=== PATIENT | female | born 1935 | race Caucasian/White ===

== ENCOUNTER → 2016-11-02 | Outpatient (CLI) | payer MEDICARE, BC ==
--- NOTE | 2016-11-03 11:22 | PE ---
EXAMINATION TYPE: PET CT fusion skull to thigh DATE OF EXAM: 11/02/2016 1:22 PM COMPARISON: Chest CT 09/25/2016 HISTORY: Lung cancer TECHNIQUE: Following the intravenous administration of 14.9 mCi of F-18 FDG, whole body images are p erformed from the skull base to the midthigh. Images are reviewed on the computer in the coronal, ax ial, and sagittal planes. Reconstructed rotating images are created on independent workstation and r eviewed on the computer. A localization and attenuation correction CT is performed in conjunction w ith the PET scan. DLP: 411.93 mGycm SCAN: Initial Scan Blood glucose: 100 mg/dL Average Mediastinum SUV: 1.5 Average Liver SUV: 2.7 FINDINGS: NECK: There is increased signal within the right prevertebral space. This has an SUV value 5.0 which is suspicious for neoplasm. Direct visualization is recommended. There is increase radiotracer accum ulation within the right tonsillar pillar with an SUV value of 4.6. This could be within the metastat ic range. THORAX: There is a focus of radiotracer accumulation along the left superior mediastinum with an SUV value 2.7. This is suspicious for metastatic lymph node. There is marked increased radiotracer accumulation within the right peripheral lung mass measuring 11 .3 SUV compatible with neoplasm. No additional areas suspicious for mediastinal or hilar adenopathy i s evident. There is a focus along the left pleural margin with an SUV value of 2.6 which may be a ple ural-based metastasis. The area of pneumonitis at the left base is suspicious with an SUV value of 2. 6. Pleural-based or left rib based metastasis is suspected with SUV value of 3.3. ABDOMEN AND PELVIS: No suspicious uptake within the abdomen or pelvis. OSSEOUS STRUCTURES: Left lateral rib uptake may be present as discussed in the thorax section. PET im ages [address]: Uptake within the superior mediastinum does not have a corresponding CT abnormality. The peripheral right lung mass is evident. Osseous abnormality on the CT examination identified wit hin the ribs. This suggests this may be pleural-based. Note is made of coronary artery calcification. COMPARISON: Suspicious uptake to correspond to a nodular density within the right middle lobe lung ba se is not identified on the PET scan. Uptake is evident within the peripheral lung mass. IMPRESSION: 1. Marked uptake within the right lung mass suspicious for primary or possibly metastatic neoplasm. 2. Uptake within the superior mediastinum suspicious for metastatic disease. 3. Uptake within the right tonsillar pillar and right prevertebral space suspicious for neoplasm. Chrissy samuel and metastatic lesions should be considered. 4. Uptake along the lateral left chest wall 2 locations in the lower lateral chest. It is unclear whe ther this is chest wall or rib uptake. These areas are suspicious for neoplasm.
== END | disposition home or self-care (01) ==
LOC: RADPETMAIN 11:33
PROVIDERS: ATTEND Internal Medicine Hematology & Oncology
DX: R91.8 Other nonspecific abnormal finding of lung field (principal); R93.7 Abnormal findings on diagnostic imaging of other parts of musculoskeletal system; C34.91 Malignant neoplasm of unspecified part of right bronchus or lung
CPT/HCPCS: 78815; A9552

== ENCOUNTER 2016-12-07 16:30 | Inpatient (IN) | payer MEDICARE, BC ==
[2016-12-07] MEDS ORDERED: SODIUM CHLORIDE 0.9% 500 ML IV STA (16:58)
--- NOTE | 2016-12-07 17:02 | ED ---
Syncope HPI - General Chief Complaint: Syncope Stated Complaint: Syncope Time Seen by Provider: 12/07/16 16:52 Source: patient, EMS Mode of arrival: EMS - History of Present Illness Initial Comments: 81-year-old female with history of lung cancer diagnosed in September was sitting at the table when she passed out. Her friend said there was no seizure activity she was out cold or ice pack for about 1 minute. Drinking to now feels somewhat lightheaded. She had chemotherapy last week. She had no fever no chills no nausea no vomiting no diarrhea. No chest pain or shortness of breath. History of hypertension. No heart disease. She does have COPD. - Related Data Home Medications Medication Instructions Recorded Confirmed Citalopram Hydrobromide [CeleXA] 10 mg PO DAILY 12/07/16 12/07/16 amLODIPine [Norvasc] 5 mg PO BID 12/07/16 12/07/16 Allergies Allergy/AdvReac Type Severity Reaction Status Date / Time No Known Allergies Allergy Verified 12/07/16 17:26 Review of Systems ROS Statement: Those systems with pertinent positive or pertinent negative responses have been documented in the HPI. ROS Other: All systems not noted in ROS Statement are negative. Constitutional: Denies: fever, chills Eyes: Denies: eye pain ENT: Denies: ear pain Respiratory: Denies: cough Cardiovascular: Denies: chest pain Gastrointestinal: Denies: abdominal pain, nausea, vomiting, diarrhea Neurological: Denies: headache Psychiatric: Denies: anxiety, depression Hematological/Lymphatic: Denies: easy bleeding, easy bruising Past Medical History Past Medical History: COPD, Hyperlipidemia, Hypertension, Osteoarthritis (OA), Respiratory Disorder Additional Past Medical History / Comment(s): Diverticular disease, lung cancer History of Any Multi-Drug Resistant Organisms: None Reported Past Surgical History: Appendectomy, Hysterectomy Additional Past Surgical History / Comment(s): colostomy reversal 2009 cataracts Past Anesthesia/Blood Transfusion Reactions: No Reported Reaction Past Psychological History: Depression Smoking Status: Former smoker Past Alcohol Use History: Occasional Past Drug Use History: None Reported - Past Family History Mother Family Medical History: Cancer (Lung cancer) Brother(s) Family Medical History: Diabetes Mellitus Daughter(s) Family Medical History: Cancer (Breast cancer) General Exam Limitations: no limitations General appearance: alert, in no apparent distress Head exam: Present: atraumatic Eye exam: Present: PERRL, EOMI ENT exam: Present: normal oropharynx Respiratory exam: Present: normal lung sounds bilaterally Cardiovascular Exam: Present: normal rhythm, normal heart sounds GI/Abdominal exam: Present: soft. Absent: distended, tenderness Neurological exam: Present: alert, CN II-XII intact Psychiatric exam: Present: normal affect, normal mood Skin exam: Present: warm, dry Course Vital Signs 12/07/16 12/07/16 12/07/16 16:38 16:58 17:00 Temperature 97 F L Pulse Rate 70 Pulse Rate [ 74 Sitting] Pulse Rate [ 91 74 Standing] Pulse Rate [ 68 Supine] Respiratory 18 Rate Blood Pressure 94/56 Blood Pressure 108/62 [Sitting] Blood Pressure 116/65 [Standing] Blood Pressure 93/51 [Supine] O2 Sat by Pulse 97 Oximetry 12/07/16 12/07/16 12/07/16 18:14 18:31 19:15 Temperature 97.1 F L Pulse Rate 78 80 75 Pulse Rate [ Sitting] Pulse Rate [ Standing] Pulse Rate [ Supine] Respiratory 18 20 16 Rate Blood Pressure 129/63 136/65 Blood Pressure [Sitting] Blood Pressure [Standing] Blood Pressure [Supine] O2 Sat by Pulse 98 98 100 Oximetry Medical Decision Making - Medical Decision Making Spoke with the information support project manager he does not feel the elevated white count is related is just related to her Neulasta, we spoke to Dr. Hernandez resolution manager for her family doctor patient will be admitted for syncope. - Lab Data Result diagrams: 12/07/16 17:10 12/07/16 17:10 Lab Results 12/07/16 12/07/16 12/07/16 Range/Units 17:10 17:10 17:10 WBC 60.0 H* (3.8-10.6) k/uL RBC 2.98 L (3.80-5.40) m/uL Hgb 9.3 L (11.4-16.0) gm/dL Hct 29.2 L (34.0-46.0) % MCV 98.0 (80.0-100.0) fL MCH 31.1 (25.0-35.0) pg MCHC 31.8 (31.0-37.0) g/dL RDW 17.6 H (11.5-15.5) % Plt Count 603 H (150-450) k/uL Neutrophils % (Manual) 94.5 % Band Neutrophils % 1.0 % Lymphocytes % (Manual) 3.5 % Monocytes % (Manual) 1.0 % Neutrophils # (Manual) 57.3 H (1.3-7.7) k/uL Lymphocytes # (Manual) 2.1 (1.0-4.8) k/uL Monocytes # (Manual) 0.6 (0-1.0) k/uL Nucleated RBCs 0 (0-0) /100 WBC Manual Slide Review Performed Toxic Granulation Present Anisocytosis Slight Macrocytosis Slight PT (9.0-12.0) sec INR (<1.1) APTT (22.0-30.0) sec Sodium 140 (137-145) mmol/L Potassium 5.4 H (3.5-5.1) mmol/L Chloride 105 (98-107) mmol/L Carbon Dioxide 21 L (22-30) mmol/L Anion Gap 14 mmol/L BUN 31 H (7-17) mg/dL Creatinine 0.74 (0.52-1.04) mg/dL Est GFR (MDRD) Af Amer >60 (>60 ml/min/1.73 sqM) Est GFR (MDRD) Non-Af >60 (>60 ml/min/1.73 sqM) Glucose 109 H (74-99) mg/dL Calcium 10.5 H (8.4-10.2) mg/dL Total Bilirubin 0.6 (0.2-1.3) mg/dL AST 111 H (14-36) U/L ALT 149 H (9-52) U/L Alkaline Phosphatase 125 (38-126) U/L Total Creatine Kinase <20 L (30-135) U/L CK-MB (CK-2) <0.2 (0.0-2.4) ng/mL CK-MB (CK-2) Rel Index Troponin I <0.012 (0.000-0.034) ng/mL Total Protein 7.0 (6.3-8.2) g/dL Albumin 4.1 (3.5-5.0) g/dL Urine Color Urine Appearance (Clear) Urine pH (5.0-8.0) Ur Specific Story (1.001-1.035) Urine Protein (Negative) Urine Glucose (UA) (Negative) Urine Ketones (Negative) Urine Blood (Negative) Urine Nitrate (Negative) Urine Bilirubin (Negative) Urine Urobilinogen (<2.0) mg/dL Ur Leukocyte Esterase (Negative) Urine RBC (0-5) /hpf Urine WBC (0-5) /hpf Ur Squamous Epith Cells (0-4) /hpf Urine Bacteria (None) /hpf Urine Mucus (None) /hpf 12/07/16 12/07/16 Range/Units 17:10 18:30 WBC (3.8-10.6) k/uL RBC (3.80-5.40) m/uL Hgb (11.4-16.0) gm/dL Hct (34.0-46.0) % MCV (80.0-100.0) fL MCH (25.0-35.0) pg MCHC (31.0-37.0) g/dL RDW (11.5-15.5) % Plt Count (150-450) k/uL Neutrophils % (Manual) % Band Neutrophils % % Lymphocytes % (Manual) % Monocytes % (Manual) % Neutrophils # (Manual) (1.3-7.7) k/uL Lymphocytes # (Manual) (1.0-4.8) k/uL Monocytes # (Manual) (0-1.0) k/uL Nucleated RBCs (0-0) /100 WBC Manual Slide Review Toxic Granulation Anisocytosis Macrocytosis PT 10.5 (9.0-12.0) sec INR 1.0 (<1.1) APTT 18.2 L (22.0-30.0) sec Sodium (137-145) mmol/L Potassium (3.5-5.1) mmol/L Chloride (98-107) mmol/L Carbon Dioxide (22-30) mmol/L Anion Gap mmol/L BUN (7-17) mg/dL Creatinine (0.52-1.04) mg/dL Est GFR (MDRD) Af Amer (>60 ml/min/1.73 sqM) Est GFR (MDRD) Non-Af (>60 ml/min/1.73 sqM) Glucose (74-99) mg/dL Calcium (8.4-10.2) mg/dL Total Bilirubin (0.2-1.3) mg/dL AST (14-36) U/L ALT (9-52) U/L Alkaline Phosphatase (38-126) U/L Total Creatine Kinase (30-135) U/L CK-MB (CK-2) (0.0-2.4) ng/mL CK-MB (CK-2) Rel Index Troponin I (0.000-0.034) ng/mL Total Protein (6.3-8.2) g/dL Albumin (3.5-5.0) g/dL Urine Color Yellow Urine Appearance Cloudy H (Clear) Urine pH 5.0 (5.0-8.0) Ur Specific Story 1.014 (1.001-1.035) Urine Protein Trace H (Negative) Urine Glucose (UA) Negative (Negative) Urine Ketones Negative (Negative) Urine Blood Negative (Negative) Urine Nitrate Negative (Negative) Urine Bilirubin Negative (Negative) Urine Urobilinogen <2.0 (<2.0) mg/dL Ur Leukocyte Esterase Negative (Negative) Urine RBC 2 (0-5) /hpf Urine WBC 6 H (0-5) /hpf Ur Squamous Epith Cells 7 H (0-4) /hpf Urine Bacteria Rare H (None) /hpf Urine Mucus Occasional H (None) /hpf - EKG Data -: EKG Interpreted by Me 12/07/16 17:33 EKG 12/07/2016 1638 ventricular rate 72 bpm, LA interval 164 ms, QRS duration 84 ms, QT interval 388 ms normal sinus rhythm possible left atrial enlargement. Disposition Clinical Impression: Syncope Disposition: ADMITTED IP TO THIS [facility] Condition: Good Referrals: None,Stated [Primary Care Provider] - 1-2 days Time of Disposition: 19:57
[2016-12-07 17:34] LABS: ALT 149 U/L (9-52); AST 111 U/L (14-36); Alkaline Phosphatase 125 U/L (38-126); Anion Gap 14 mmol/L; Blood Urea Nitrogen 31 mg/dL (7-17); Calcium 10.5 mg/dL (8.4-10.2); Carbon Dioxide 21 mmol/L (22-30); Chloride 105 mmol/L (98-107); Glucose 109 mg/dL (74-99); Non-African American GFR(MDRD) >60 (>60 ml/min/1.73 sqM); Potassium 5.4 mmol/L (3.5-5.1); Sodium 140 mmol/L (137-145); Total Bilirubin 0.6 mg/dL (0.2-1.3)
[2016-12-07 17:35] LABS: Anisocytosis Slight; CH 31.3; CHCM 32.2; HCT 29.2 % (34.0-46.0); HDW 2.74; HGB 9.3 gm/dL (11.4-16.0); MCH 31.1 pg (25.0-35.0); MCHC 31.8 g/dL (31.0-37.0); Macrocytosis Slight; Mean Platelet Volume 7.7; RBC 2.98 m/uL (3.80-5.40); RDW 17.6 % (11.5-15.5); WBC (Perox) 59.65
[2016-12-07 17:40] LABS: Prothrombin Time 10.5 sec (9.0-12.0)
[2016-12-07 17:45] LABS: Creatine Kinase <20 U/L (30-135)
[2016-12-07 17:46] LABS: Partial Thromboplastin Time 18.2 sec (22.0-30.0)
[2016-12-07 17:47] LABS: Add Differential Manual Differential
[2016-12-07 17:51] LABS: Nucleated Red Blood Cells 0 /100 WBC (0-0); Total Cells Counted 200
[2016-12-07 17:52] LABS: Manual Review Performed; Toxic Granulation Present
--- NOTE | 2016-12-07 17:53 | XR ---
EXAMINATION TYPE: XR chest 2V DATE OF EXAM: 12/07/2016 5:45 PM COMPARISON: 03/29/2014 HISTORY: 81-year-old female with syncope and right-sided lung cancer TECHNIQUE: Frontal and lateral views FINDINGS: Heart remains borderline enlarged with mild elongation of thoracic aorta. Hyperinflation with diffuse interstitial prominence and chronic pleural parenchymal opacities along the peripheral right hemitho rax and right base. No paul consolidation or significant pleural effusion. IMPRESSION: COPD with extensive chronic pleural-parenchymal changes within the right hemithorax. No definite acut e process.
--- NOTE | 2016-12-07 17:57 | CT ---
EXAMINATION TYPE: CT brain wo con DATE OF EXAM: 12/07/2016 5:46 PM COMPARISON: NONE HISTORY: 81-year-old female complains of syncopal episode today. Patient denies and head complaints at time of study. TECHNIQUE: Examination was done in axial plane without intravenous contrast. Coronal and sagittal r econstructions performed. CT DLP: 823.6 mGycm Automated exposure control for dose reduction was used. FINDINGS: Densely calcified extra-axial lesion along the left paramedian vertex suggestive of a meningioma coby uring 1.3 cm. No other mass or mass effect. There is moderate generalized atrophy with a mild to moderate patchy and confluent white matter hypod ensities in both cerebral hemispheres. 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 There is no evidence of acute intracranial hemorrhage, acute ischemic change, mass effect, or extra- axial fluid collection. There is no effacement of cerebral sulci or basal subarachnoid cisterns. Th ere is no hydrocephalus. There is no midline shift. Rosales-white matter distinction is preserved. Paranasal sinuses and mastoid air cells are well pneumatized. Cerumen within the left external audito ry canal. Orbits and globes are intact. IMPRESSION: 1. No acute intracranial abnormality seen. 2. Moderate atrophy and changes of chronic small vessel ischemic disease. 3. Findings suggest a densely calcified 1.3 cm meningioma along the left paramedian vertex.
[2016-12-07 17:58] LABS: Creatine Kinase MB <0.2 ng/mL (0.0-2.4); Troponin I <0.012 ng/mL (0.000-0.034)
[2016-12-07 18:43] LABS: Appearance,Urine Cloudy (Clear); Bacteria,Urine Rare /hpf; Bilirubin,Urine Negative (Negative); Glucose,Urine (UA) Negative (Negative); Ketones,Urine Negative (Negative); Leukocyte Esterase,Urine Negative (Negative); Mucus,Urine Occasional /hpf; Nitrite,Urine Negative (Negative); Particle Count 7845; Protein,Urine Trace (Negative); RBC,Urine 2 /hpf (0-5); Specific Gravity,Urine 1.014 (1.001-1.035); Squamous Epithelial Cell,Urine 7 /hpf (0-4); UA Billing (MACRO vs. MICRO) MICRO; Urobilinogen,Urine <2.0 mg/dL (<2.0); WBC,Urine 6 /hpf (0-5)
[2016-12-07] MEDS ORDERED: SODIUM CHLORIDE 0.45% 1,000 ML IV SCH (19:15)
[2016-12-07] MEDS ORDERED: NALOXONE 0.4 MG/ML 1 ML VIAL IV PRN (19:15)
[2016-12-07] MEDS: amLODIPine 5 MG TAB PO SCH (21:01)
[2016-12-07] MEDS ORDERED: POLYETHYLENE GLYCOL 3350 17 GM POWD.PACK PO STA (23:39)
[2016-12-07 23:48] LABS: Creatine Kinase <20 U/L (30-135)
[2016-12-08 00:01] LABS: Creatine Kinase MB <0.2 ng/mL (0.0-2.4); Troponin I <0.012 ng/mL (0.000-0.034)
[2016-12-08 06:20] LABS: Anion Gap 8 mmol/L; Blood Urea Nitrogen 26 mg/dL (7-17); Calcium 9.4 mg/dL (8.4-10.2); Carbon Dioxide 24 mmol/L (22-30); Chloride 108 mmol/L (98-107); Glucose 88 mg/dL (74-99); Non-African American GFR(MDRD) >60 (>60 ml/min/1.73 sqM); Potassium 5.1 mmol/L (3.5-5.1); Sodium 140 mmol/L (137-145)
[2016-12-08 06:26] LABS: Anisocytosis Slight; Basophils # (A) 0.3 k/uL (0-0.2); Basophils % (A) 1 %; CH 31.8; CHCM 33.3; Eosinophils # (A) 0.1 k/uL (0-0.7); Eosinophils % (A) 0 %; HCT 23.7 % (34.0-46.0); HDW 2.78; Luc # (Auto) 0.08; Luc % (Auto) 0; Lymphocytes # (A) 1.1 k/uL (1.0-4.8); Lymphocytes % (A) 2 %; MCH 31.2 pg (25.0-35.0); MCHC 32.4 g/dL (31.0-37.0); MCV 96.3 fL (80.0-100.0); Macrocytosis Slight; Monocytes # (A) 0.4 k/uL (0-1.0); Monocytes % (A) 1 %; Neutrophils # (A) 50.4 k/uL (1.3-7.7); Neutrophils % (A) 96 %; RBC 2.46 m/uL (3.80-5.40); WBC (Perox) 51.01
[2016-12-08 06:31] LABS: Creatine Kinase <20 U/L (30-135)
[2016-12-08 06:35] LABS: WBC 52.4 k/uL (3.8-10.6)
[2016-12-08 06:36] LABS: HGB 7.7 gm/dL (11.4-16.0)
[2016-12-08 06:43] LABS: Creatine Kinase MB <0.2 ng/mL (0.0-2.4); Troponin I <0.012 ng/mL (0.000-0.034)
[2016-12-08 07:19] LABS: Large Platelets Present; Manual Review Performed
[2016-12-08] MEDS: CITALOPRAM HYDROBROMIDE 10 MG TAB PO SCH (08:04)
[2016-12-08] MEDS: SENNOSIDES-DOCUSATE SODIUM 1 EACH TAB PO SCH (08:04)
[2016-12-08] MEDS: amLODIPine 5 MG TAB PO SCH (08:05)
--- NOTE | 2016-12-08 09:29 | CONS ---
DATE OF CONSULTATION: Mrs. Cardoso is a 81-year-old female with a history of hypertension, prior history of smoking, who is recently diagnosed with lung cancer, has been receiving chemotherapy. Yesterday while sitting down at the table, she passed out. She had syncopal episode for about a minute, came to, did not have any or focal weakness, or loss of bladder control. She had no symptoms of prior to the event, she denies any dizziness, palpitation or chest discomfort. She is not very active physically, has a prior history of dyspnea on exertion, but no history of chest discomfort. She has no history of arrhythmia. She had a syncopal episode in 2013. At that time work-up was negative and was thought to be related to hypotensive response to her antihypertensive regimen. She has no clear PND, orthopnea. No peripheral edema. She has no documented arrhythmia. Her coronary risk factor are remarkable for hypertension. She stopped smoking 2 months ago. Her lipid profile is not available to me. She is nondiabetic. Her medications include: 1. Norvasc 5 mg twice a day. 2. Celexa 10 mg daily. REVIEW OF SYSTEMS: RESPIRATORY SYSTEM: She has the history of dyspnea on exertion, history of lung cancer. Full details of that are not available to me. GI system: No recent GI bleeding. No peptic ulcer disease. system: No dysuria or hematuria. PHYSICAL EXAMINATION: She is a 81-year-old female, alert, oriented, in no apparent distress. Blood pressure 101/60 with a heart rate in the 80s. HEAD: Normocephalic. EYES: Sclerae anicteric. NECK: Good upstroke. No bruit. No jugular venous distention. LUNGS: With mild decreased in the breath sounds with scattered wheezes. HEART: Regular rate and rhythm. S1, S2, no S3, no rub. ABDOMEN: Soft, nontender, positive bowel sounds. No organomegaly. EXTREMITIES: No edema. Intact distal pulses. Lab data revealed the white blood cell of 52,000. Hemoglobin of 7.7, BUN and creatinine 26 and 0.57, potassium 5.1. Her calcium is 10.5, AST 111, ALT of 149. Troponin less than 0.012 for 3 samples. EKG revealed a sinus mechanism, normal axis and intervals, no acute changes. Chest x-ray shows evidence of COPD. Her CT scan of the brain shows a modest atrophy with calcified meningioma. IMPRESSION: 1. Syncopal episode could be related to hypotension. No evidence to suggest arrhythmia or ischemic heart disease. 2. Lung cancer recently diagnosed being treated with chemotherapy. 3. Prior history of smoking. 4. History of hypertension. RECOMMENDATION: I will cut down the dose of her calcium channel elyse. I will obtain an echocardiogram with Doppler. The patient low blood pressure could be exacerbated by the anemia related to her chemotherapy. Depending on her progress, further recommendation will be made. Thank you for this consult. We will follow with you.
--- NOTE | 2016-12-08 14:08 | P.HPIM ---
History of Present Illness H&P Date: 12/08/16 Chief Complaint: Syncope Patient is a 81 year old female with history of COPD recently diagnosed lung cancer September 2016 hypertension chronic tobacco dependence quit September 2016 admitted to the ER with acute episode of loss of consciousness which lasted for less than a minute . she was having dinner was found to have a witnessed episode of syncope patient was incoherent and unconscious at that time there was no tonic-clonic contractions of the upper and lower extremity there is no urinary incontinence or stool incontinence patient was sitting down when this thing happened patient cannot recollect the events occurred during the episode Patient denies any fever and chills there's no hemoptysis patient does not have any purulence in her cough. . Patient denies any coughing spells during the episode of syncope, she recently completed her chemotherapy 2 weeks ago for her lung cancer patient denies any other new changes including neurologic deficits related to the syncope She was last admitted for syncope on 03/28/2014 related to new blood pressure medication lisinopril HCTZ, workup was done at the time including consultations She has a nebulizer at home on by the she does not require any treatments she was supposed to be on Symbicort secondary to wheezing episodes however she cannot afford to get the medication . Past Medical History Past Medical History: Cancer (Lung), COPD, Hyperlipidemia, Hypertension, Osteoarthritis (OA), Respiratory Disorder, Syncope Additional Past Medical History / Comment(s): Lung Cancer diagnosis in September 2016, currently receiving chemotherapy. History of Any Multi-Drug Resistant Organisms: None Reported Past Surgical History: Appendectomy, Hysterectomy Additional Past Surgical History / Comment(s): colostomy reversal 2008, cataracts Past Anesthesia/Blood Transfusion Reactions: No Reported Reaction Past Psychological History: Depression Smoking Status: Former smoker Past Alcohol Use History: Occasional Additional Past Alcohol Use History / Comment(s): Used to drink a few drinks per day. Since CA diagnosis, has only recently had a couple drinks in the past week. Quit smoking in September 2016. Past Drug Use History: None Reported - Past Family History Mother Family Medical History: Cancer Additional Family Medical History / Comment(s): Mother had lung CA diagnosed at 90 years old. Brother(s) Family Medical History: Diabetes Mellitus Daughter(s) Family Medical History: Cancer Additional Family Medical History / Comment(s): Daughter had breast CA in 2006 Medications and Allergies Home Medications Medication Instructions Recorded Confirmed Type Citalopram Hydrobromide [CeleXA] 10 mg PO DAILY 12/07/16 12/07/16 History Allergies Allergy/AdvReac Type Severity Reaction Status Date / Time No Known Allergies Allergy Verified 12/07/16 17:26 Physical Exam Vitals: Vital Signs Temp Pulse Pulse Pulse Resp BP BP 12/08/16 04:00 98.5 F 87 96 78 18 101/65 103/59 12/07/16 23:20 97.6 F 80 18 12/07/16 20:25 96.9 F L 89 18 12/07/16 20:07 96.9 F L 89 18 BP Pulse Ox 12/08/16 04:00 107/58 96 12/07/16 23:20 112/58 95 12/07/16 20:25 116/66 94 L 12/07/16 20:07 116/66 94 L Intake and Output 12/07/16 12/08/16 12/08/16 22:59 06:59 14:59 Intake Total 240 Output Total 150 1 Balance -150 239 Intake: IV 240 Sodium Chloride 0.45% 1, 240 000 ml @ 20 mls/hr IV . Q24H [facility] Rx#:[id number] Output: Urine 150 1 Other: Voiding Method Toilet Toilet # Voids 1 Weight 73.9 kg 72.9 kg - Constitutional General appearance: cooperative, no acute distress - EENT Eyes: anicteric sclerae, EOMI, PERRLA, dentition normal, normal appearance ENT: hearing grossly normal, NA/AT, normal oropharynx - Neck Neck: normal ROM - Respiratory Respiratory: bilateral: CTA, negative: dullness, rales, rhonchi, prolonged expiration - Cardiovascular Rhythm: regular Heart sounds: normal: S1, S2 Abnormal Heart Sounds: no systolic murmur, no diastolic murmur, no rub, no S3 Gallop, no S4 Gallop, no click, no other - Gastrointestinal General gastrointestinal: normal bowel sounds, soft - Integumentary Integumentary: normal, normal turgor - Neurologic Neurologic: CNII-XII intact - Musculoskeletal Musculoskeletal: gait normal, strength equal bilaterally - Psychiatric Psychiatric: A&O x's 3, appropriate affect, intact judgment & insight Results CBC & Chem 7: 12/09/16 05:50 12/09/16 05:50 Labs: Abnormal Lab Results - Last 24 Hours (Table) 12/07/16 12/08/16 12/08/16 Range/Units 23:15 05:37 05:37 WBC 52.4 H* (3.8-10.6) k/uL RBC 2.46 L (3.80-5.40) m/uL Hgb 7.7 L D (11.4-16.0) gm/dL Hct 23.7 L (34.0-46.0) % RDW 18.0 H (11.5-15.5) % Neutrophils # 50.4 H (1.3-7.7) k/uL Basophils # 0.3 H (0-0.2) k/uL Chloride 108 H (98-107) mmol/L BUN 26 H (7-17) mg/dL Total Creatine Kinase <20 L (30-135) U/L 12/08/16 Range/Units 05:37 WBC (3.8-10.6) k/uL RBC (3.80-5.40) m/uL Hgb (11.4-16.0) gm/dL Hct (34.0-46.0) % RDW (11.5-15.5) % Neutrophils # (1.3-7.7) k/uL Basophils # (0-0.2) k/uL Chloride (98-107) mmol/L BUN (7-17) mg/dL Total Creatine Kinase <20 L (30-135) U/L Thrombosis Risk Factor Assmnt - Choose All That Apply Any of the Below Risk Factors Present?: Yes Each Factor Represents 1 point: Abnormal pulmonary function (COPD) Other Risk Factors: Yes Each Risk Factor Represents 2 Points: Malignancy Each Risk Factor Represents 3 Points: Age 75 years or older Thrombosis Risk Factor Assessment Total Risk Factor Score: 6 Thrombosis Risk Factor Assessment Level: High Risk Assessment and Plan Plan: 1. Acute syncope secondary episode without any triggering factors, patient will be seen by neurology and cardiology, patient's back at baseline she is currently monitored with telemetry EEG of the brain will be performed tomorrow. She might need an event monitor underlying arrhythmia needs to be excluded. Echocardiogram is ordered 2. Hypertension with newly adjusted medication prior to her admission. She was slightly hypotensive with low as systolic blood pressure of 90 patient's lisinopril HCTZ was discontinued and replaced with lisinopril 10 mg daily she is to continue on Norvasc 10 mg daily 3. Acute urinary tract infection for which patient was placed on oralLevaquin. Cultures and sensitivity will be obtained,unfortunately the ER did not send urine specimen for culture and sensitivity as well as blood specimen for culture and sensitivity. 3. Chronic tobacco exposure with recent cessation September 2016, denies relapse 4. COPD exacerbation with mild bronchospasm noted on the evaluation patient's continue on nebulized albuterol and Atrovent with going to give her a few doses of Solu-Medrol 60 mg every 6 hours and taper to prednisone oral upon discharge. Patient cannot afford the Symbicort it was prescribed to her originally 5. Lung Cancer recently diagnosed in 09/[address] 10/2016 showing right lung mass, superior mediastinal uptake suspicious for metastatic disease uptake in the right tonsillar pillar and right prevertebral space suspicious for metastatic disease. She received chemotherapy 2 weeks prior to admission she follows with oncology as an outpatient 6. Hyperlipidemia on Lipitor 10 mg daily 7. GI prophylaxis and DVT prophylaxis using subcutaneous heparin and Pepcid 8. leukemoid reaction related to colony stimulation factor G-CSF treatments from chemotherapy related neutropenia 9. anemia, related to chemotherapy 10. Meningioma related findings 1.2 cm there there is the calcified lesion left paramedian vertex
[2016-12-08] MEDS ORDERED: ALBUTEROL NEBULIZED 2.5 MG/3 ML INHALATION PRN (14:09)
--- NOTE | 2016-12-08 14:55 | P.CNNES ---
History of Present Illness Consult date: 12/08/16 Chief complaint: Syncope History of Present Illness: Patient is a pleasant 81-year-old female who is being evaluated by the neurology service on 12/08/2016 per the request of Dr. Angelia Hernandez for syncope. Patient was recently diagnosed with lung cancer in September 2016 and is currently on chemotherapy. Patient has history of chronic tobacco dependence and did quit in September 2016. 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 Reportedly patient was out for about 1 minute. No seizure-like activity was described. Patient does not describe a postictal state. There was no loss of bowel or bladder function. Blood pressure was borderline low on admission. Patient reports this happened before when she was placed on antihypertensive medication and blood pressure fell to low. Patient with current urinary tract infection and was placed on antibiotics. Laboratory workup included WBC is 52.4 with hemoglobin of 7.7 and hematocrit 23.7. Patient recently on Neulasta. CT of the brain shows no acute intracranial abnormality but does show a densely calcified 1.3 cm meningioma along the left paramedian vertex. At the time of my evaluation, patient is resting comfortably in bed and appears to be in no acute distress. Review of Systems REVIEW OF SYSTEMS: Otherwise unremarkable and noncontributory. Past Medical History Past Medical History: Cancer (Lung), COPD, Hyperlipidemia, Hypertension, Osteoarthritis (OA), Respiratory Disorder, Syncope Additional Past Medical History / Comment(s): Lung Cancer diagnosis in September 2016, currently receiving chemotherapy. History of Any Multi-Drug Resistant Organisms: None Reported Past Surgical History: Appendectomy, Hysterectomy Additional Past Surgical History / Comment(s): colostomy reversal 2008, cataracts Past Anesthesia/Blood Transfusion Reactions: No Reported Reaction Past Psychological History: Depression Smoking Status: Former smoker Past Alcohol Use History: Occasional Additional Past Alcohol Use History / Comment(s): Used to drink a few drinks per day. Since CA diagnosis, has only recently had a couple drinks in the past week. Quit smoking in September 2016. Past Drug Use History: None Reported - Past Family History Mother Family Medical History: Cancer Additional Family Medical History / Comment(s): Mother had lung CA diagnosed at 90 years old. Brother(s) Family Medical History: Diabetes Mellitus Daughter(s) Family Medical History: Cancer Additional Family Medical History / Comment(s): Daughter had breast CA in 2006 Medications and Allergies Home Medications Medication Instructions Recorded Confirmed Type Citalopram Hydrobromide [CeleXA] 10 mg PO DAILY 12/07/16 12/07/16 History amLODIPine [Norvasc] 5 mg PO BID 12/07/16 12/07/16 History Allergies Allergy/AdvReac Type Severity Reaction Status Date / Time No Known Allergies Allergy Verified 12/07/16 17:26 Physical Examination - Vital Signs Vital Signs: Vital Signs Temp Pulse Pulse Pulse Resp BP BP 12/08/16 12:00 98.6 F 84 18 12/08/16 08:00 98.1 F 75 18 97/62 12/08/16 04:00 98.5 F 87 96 78 18 101/65 103/59 12/07/16 23:20 97.6 F 80 18 12/07/16 20:25 96.9 F L 89 18 12/07/16 20:07 96.9 F L 89 18 BP Pulse Ox 12/08/16 12:00 115/50 99 12/08/16 08:00 94 L 12/08/16 04:00 107/58 96 12/07/16 23:20 112/58 95 12/07/16 20:25 116/66 94 L 12/07/16 20:07 116/66 94 L Intake and Output 12/07/16 12/08/16 12/08/16 22:59 06:59 14:59 Intake Total 240 310 Output Total 150 1 Balance -150 239 310 Intake: IV 240 70 Sodium Chloride 0.45% 1, 240 70 000 ml @ 20 mls/hr IV . Q24H [facility] Rx#:[id number] Oral 240 Output: Urine 150 1 Other: Voiding Method Toilet Toilet # Voids 2 Weight 73.9 kg 72.9 kg PHYSICAL EXAM: GENERAL APPEARANCE: Patient is a well-developed, female who appears to be in no acute distress. HEENT: Normocephalic, atraumatic, no facial asymmetry is seen. Neck is supple with no masses felt. CARDIOVASCULAR: Regular rate and rhythm. ABDOMEN: Nontender, nondistended. EXTREMITIES: Show no edema or clubbing. NEUROLOGICAL EXAM: Patient is awake, alert, and oriented 3. Speech and language are normal. Strength is 5/5 in all 4 extremities. Sensory exam is normal to light touch in all 4 extremities. No facial asymmetry is seen on cranial nerve testing. No seizures or tremors were noted. Results - Laboratory Findings CBC and BMP: 12/08/16 05:37 12/08/16 05:37 Abnormal Lab Findings: Abnormal Labs 12/07/16 12/08/16 12/08/16 23:15 05:37 05:37 WBC 52.4 H* RBC 2.46 L Hgb 7.7 L D Hct 23.7 L RDW 18.0 H Neutrophils # 50.4 H Basophils # 0.3 H Chloride 108 H BUN 26 H Total Creatine Kinase <20 L 12/08/16 05:37 WBC RBC Hgb Hct RDW Neutrophils # Basophils # Chloride BUN Total Creatine Kinase <20 L Assessment and Plan (1) Syncope Status: Acute (2) Hypotension Status: Acute (3) Urinary tract infection Status: Acute Plan: Recommendation: Patient had syncopal episode which is most likely multifactorial in nature. Patient with borderline low blood pressure on admission with positive urinary tract infection. Patient also currently undergoing chemotherapy. I will order EEG of the brain. I will also order carotid Dopplers. Continue neurological checks. Continue current medical management. I will continue to follow with you. Further recommendations to follow. Thank you for allowing me to participate in the care of your patient. Feel free to call me with any questions or concerns. I performed an examination of the patient and discussed the management with the SENIOR BACK END JAVA DEVELOPER. I have reviewed the SENIOR BACK END JAVA DEVELOPER notes and agree with the findings and plan of care.
[2016-12-08] MEDS: methylPREDNISolone SOD SUCCI 125 MG/2 ML VIAL IV SCH ×3 (15:12→23:27)
[2016-12-08] MEDS: LEVOFLOXACIN 500 MG TAB PO SCH (16:07)
[2016-12-08 17:12] LABS: Glucose,Whole Blood 111 mg/dL (75-99)
[2016-12-08] MEDS: INSULIN LISPRO (humaLOG) 300 UNIT/3 ML VIAL SQ SCH ×2 (17:26→23:27)
[2016-12-08 21:10] LABS: Glucose,Whole Blood 175 mg/dL (75-99)
[2016-12-08] MEDS: ALBUTEROL NEBULIZED 2.5 MG/3 ML INHALATION SCH (21:13)
[2016-12-09 06:13] LABS: Anisocytosis Slight; CH 31.3; CHCM 31.7; HCT 24.5 % (34.0-46.0); HDW 2.59; HGB 7.6 gm/dL (11.4-16.0); MCHC 31.1 g/dL (31.0-37.0); MCV 99.6 fL (80.0-100.0); Macrocytosis Slight; Mean Platelet Volume 8.3; RBC 2.46 m/uL (3.80-5.40); RDW 17.5 % (11.5-15.5)
[2016-12-09 06:21] LABS: WBC 34.6 k/uL (3.8-10.6)
[2016-12-09 06:31] LABS: Glucose,Whole Blood 168 mg/dL (75-99)
[2016-12-09 06:35] LABS: Anion Gap 10 mmol/L; Blood Urea Nitrogen 30 mg/dL (7-17); Calcium 10.1 mg/dL (8.4-10.2); Carbon Dioxide 21 mmol/L (22-30); Chloride 107 mmol/L (98-107); Glucose 156 mg/dL (74-99); Non-African American GFR(MDRD) >60 (>60 ml/min/1.73 sqM); Potassium 4.8 mmol/L (3.5-5.1); Sodium 138 mmol/L (137-145)
[2016-12-09] MEDS: methylPREDNISolone SOD SUCCI 125 MG/2 ML VIAL IV SCH ×2 (06:40→13:12)
[2016-12-09] MEDS: INSULIN LISPRO (humaLOG) 300 UNIT/3 ML VIAL SQ SCH ×2 (06:40→13:12)
[2016-12-09 08:16] VITALS: RESP 16; TEMP 98.3
[2016-12-09] MEDS: CITALOPRAM HYDROBROMIDE 10 MG TAB PO SCH (08:20)
[2016-12-09] MEDS: SENNOSIDES-DOCUSATE SODIUM 1 EACH TAB PO SCH (08:22)
[2016-12-09] MEDS: ALBUTEROL NEBULIZED 2.5 MG/3 ML INHALATION SCH ×2 (09:00→13:54)
[2016-12-09] MEDS ORDERED: amLODIPine 2.5 MG TAB PO SCH (09:00)
[2016-12-09 10:09] LABS: Hemoglobin A1C 5.9 % (4.2-6.1)
--- NOTE | 2016-12-09 11:24 | ECHOF ---
Referral Reason:htn,syncope MEASUREMENTS -------- HEIGHT: 165.1 cm WEIGHT: 72.6 kg BP: 140/55 RVIDd: 2.3 cm (< 3.3) IVSd: 1.2 cm (0.6 - 1.1) LVIDd: 4.5 cm (3.9 - 5.3) LVPWd: 1.2 cm (0.6 - 1.1) IVSs: 1.5 cm LVIDs: 2.9 cm LVPWs: 1.7 cm LAESV Index (A-L): 17.31 ml/m Ao Diam: 3.0 cm (2.0 - 3.7) AV Cusp: 1.9 cm (1.5 - 2.6) LA Diam: 2.9 cm (2.7 - 3.8) MV EXCURSION: 9.718 mm (> 18.000) MV EF SLOPE: 11 mm/s (70 - 150) EPSS: 0.6 cm MV E Sylvester: 0.65 m/s MV DecT: 194 ms MV A Sylvester: 1.17 m/s MV E/A Ratio: 0.56 AV maxP.41 mmHg AV meanP.73 mmHg RAP: 5.00 mmHg RVSP: 11.91 mmHg FINDINGS -------- Sinus rhythm. This was a technically adequate study. There is borderline concentric left ventricular hypertrophy. Overall left ventricular systolic function is normal with, an EF between 55 - 60 %. The right ventricle is normal in size. Normal LA size by volume 22+/-6 ml/m2. The right atrium is normal in size. Aortic valve is trileaflet and is mildly thickened. Peak/mean gradient across the Aortic Valve is 13.41mmHg / 7.73mmHg. The mitral valve leaflets are mildly thickened. Mild mitral annular calcification present. There is trace mitral regurgitation. Trace tricuspid regurgitation present. Right ventricular systolic pressure is normal at < 35 mmHg. The pulmonic valve was not well visualized. The aortic root size is normal. Normal inferior vena cava with normal inspiratory collapse consistent with estimated right atrial pressure of 5 mmHg. Echo free space may represent effusion or a pericardial fat pad. CONCLUSIONS -------- 1. Sinus rhythm. 2. Mild mitral annular calcification present. 3. There is trace mitral regurgitation. 4. Right ventricular systolic pressure is normal at < 35 mmHg. 5. The pulmonic valve was not well visualized. 6. The aortic root size is normal. 7. Echo free space may represent effusion or a pericardial fat pad. 8. This was a technically adequate study. 9. There is borderline concentric left ventricular hypertrophy. 10. Overall left ventricular systolic function is normal with, an EF between 55 - 60 %. 11. The right ventricle is normal in size. 12. Normal LA size by volume 22+/-6 ml/m2. 13. Aortic valve is trileaflet and is mildly thickened. 14. Peak/mean gradient across the Aortic Valve is 13.41mmHg / 7.73mmHg. 15. The mitral valve leaflets are mildly thickened. IMPERSONATOR CHARACTER: Rudy Killian RDCS
--- NOTE | 2016-12-09 11:45 | US ---
EXAMINATION TYPE: US carotid duplex BILAT DATE OF EXAM: 12/09/2016 11:00 AM COMPARISON: NONE CLINICAL HISTORY: Syncope. EXAM MEASUREMENTS: RIGHT: Peak Systolic Velocity (PSV) cm/sec ----- Right CCA: 95.8 ----- Right ICA: 145.6 ----- Right ECA: 139.8 ICA/CCA ratio: 1.5 RIGHT: End Diastole cm/sec ----- Right CCA: 18.8 ----- Right ICA: 27.4 ----- Right ECA: 17.5 LEFT: Peak Systolic Velocity (PSV) cm/sec ----- Left CCA: 117.7 ----- Left ICA: 98.4 ----- Left ECA: 129.1 ICA/CCA ratio: 0.8 LEFT: End Diastole cm/sec ----- Left CCA: 24.1 ----- Left ICA: 35.4 ----- Left ECA: 11.1 VERTEBRALS (direction of flow): Right Vertebral: Antegrade Left Vertebral: Antegrade TECHNOLOGIST IMPRESSION: Moderate plaque noted bilateral bifurcations. Mildly increased velocities r ight ICA and ECA. Abnormal flow noted right vertebral Atheromatous plaquing is present bilaterally. Intimal thickening is noted at the right common carotid artery. Scattered plaques are within are within the right carotid bulb. There is some filling of the acoustic window of the right mid internal carotid artery. Intimal thickening is present within the l eft common carotid artery. Plaquing is present at the carotid bulb. Doppler waveforms appear normal. IMPRESSION: 1. Moderate narrowing right internal carotid artery estimated between 50 and 69%. 2. Mild narrowing less than 50% left internal carotid artery. Criteria for Assigning % of Stenosis / Diameter reduction (Estimation based on the indirect measurements of the internal carotid artery velocities (ICA PSV). 1. Normal (no stenosis)=ICA PSV < 125 cm/s: ratio < 2.0: ICA EDV<40 cm/s. 2. Less than 50% stenosis=ICA PSV < 125 cm/s: ratio < 2.0: ICA EDV<40 cm/s. 3. 50 to 69% stenosis=ICA PSV of 125 to 230 cm/s: ration 2.0 ? 4.0: ICA EDV 40-100 cm/s. 4. Greater than 70% stenosis to near occlusion= ICA PSV > 230 cm/s: ratio > 4.0: ICA EDV > 100 cm/s. 5. Near occlusion= ICA PSV velocities may be low or undetectable: variable ratio and ICA EDV. 6. Total occlusion=unable to detect flow.
[2016-12-09 12:31] VITALS: BP 139/63; PULSE 94
[2016-12-09 12:38] LABS: Glucose,Whole Blood 168 mg/dL (75-99)
[2016-12-09 14:17] VITALS: BMI 26.6
[2016-12-09] MEDS: LEVOFLOXACIN 500 MG TAB PO SCH (15:23)
--- NOTE | 2016-12-09 15:26 | P.DS ---
Providers Date of admission: 12/07/16 19:16 Expected date of discharge: 12/09/16 Attending physician: Angelia Hernandez Consults: 12/07/16 19:18 Consult Physician Stat Consulting Provider: Marquita Carolina Consult Reason/Comments: syncope Do you want consulting provider notified?: Yes, Notify in am 12/07/16 19:19 Consult Physician Stat Consulting Provider: Darien Nolen Consult Reason/Comments: syncope Do you want consulting provider notified?: Yes, Notify in am Primary care physician: Stated None Hospital Course: Patient is a 81 year old female with history of COPD recently diagnosed lung cancer September 2016 hypertension chronic tobacco dependence quit September 2016 admitted to the ER with acute episode of loss of consciousness which lasted for less than a minute . she was having dinner was found to have a witnessed episode of syncope patient was incoherent and unconscious at that time there was no tonic-clonic contractions of the upper and lower extremity there is no urinary incontinence or stool incontinence patient was sitting down when this thing happened patient cannot recollect the events occurred during the episode Patient denies any fever and chills there's no hemoptysis patient does not have any purulence in her cough. . Patient denies any coughing spells during the episode of syncope, she recently completed her chemotherapy 2 weeks ago for her lung cancer patient denies any other new changes including neurologic deficits related to the syncope She was last admitted for syncope on 03/28/2014 related to new blood pressure medication lisinopril HCTZ, workup was done at the time including consultations She has a nebulizer at home on by the she does not require any treatments she was supposed to be on Symbicort secondary to wheezing episodes however she cannot afford to get the medication . 12/09: Patient has been seen by neurology for syncopal episode most likely multifactorial. Echocardiogram reveals trace mitral regurgitation, echo's free space may represent effusion or pericardial fat pad, borderline concentric left ventricular hypertrophy, EF 55-60%. Carotid duplex shows right carotid artery between 50-69% stenosis and less than 50% on the left internal carotid artery. Troponin have been negative on 3 draws. Repeat CBC shows white count of 34.6, hemoglobin 7.6. TSH 0.457 and free T4 1 0.33. Capillary blood glucose running between 111 and 175. Hemoglobin A1c 5.9.cardiology feels syncopal episode was due to hypotension. Patient has been IMO dynamicallystable and will be discharged home today in stable condition.patient is complaining of constipation and lack of bowel movement for 5 days for which she was recommended to continue the Senokot and also take MiraLAX. Discharge Diagnoses: 1. Acute syncope secondary to hypotension 2. Hypertension with newly adjusted medication prior to her admission. 3. Acute urinary tract infection 3. Chronic tobacco exposure with recent cessation September 2016, denies relapse 4. COPD exacerbation with mild bronchospasm 5. Lung Cancer recently diagnosed in 09/[address] 10/2016 showing right lung mass, superior mediastinal uptake suspicious for metastatic disease uptake in the right tonsillar pillar and right prevertebral space suspicious for metastatic disease. She received chemotherapy 2 weeks prior to admission she follows with oncology as an outpatient 6. Hyperlipidemia 7. 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 anemia, related to chemotherapy 9. Meningioma related findings 1.2 cm there there is the calcified lesion left paramedian vertex Discharge plan: home with [facility] Impression and plan of care have been directed as dictated by the signing physician. Brooke Christensen nurse practitioner acting as scribe for signing physician. Patient Condition at Discharge: Good Plan - Discharge Summary New Discharge Prescriptions: Albuterol Sulfate [Proventil Hfa] 2 puff INHALATION Q6HR #1 inhaler Budesonide-Formot 160-4.5 Mcg [Symbicort 160-4.5 Mcg Inhaler] 2 puff INHALATION BID #1 inhaler Levofloxacin [Levaquin] 250 mg PO DAILY #5 tab Polyethylene Glycol 3350 [Miralax] 17 gm PO Q3D PRN #30 packet PRN Reason: Constipation predniSONE 0 mg PO DIRECTED #40 tab Discharge Medication List Citalopram Hydrobromide [CeleXA] 10 mg PO DAILY 12/07/16 [History] Albuterol Sulfate [Proventil Hfa] 2 puff INHALATION Q6HR #1 inhaler 12/09/16 [Rx ] Budesonide-Formot 160-4.5 Mcg [Symbicort 160-4.5 Mcg Inhaler] 2 puff INHALATION BID #1 inhaler 12/09/16 [Rx] Levofloxacin [Levaquin] 250 mg PO DAILY #5 tab 12/09/16 [Rx] Polyethylene Glycol 3350 [Miralax] 17 gm PO Q3D PRN #30 packet 12/09/16 [Rx] Sennosides-Docusate Sodium [Senokot-S] 1 each PO DAILY tab 12/09/16 [Rx] amLODIPine [Norvasc] 2.5 mg PO BID #0 12/09/16 [Rx] predniSONE 0 mg PO DIRECTED #40 tab 12/09/16 [Rx] Follow up Appointment(s)/Referral(s): Dinorah Harris NPC [Nurse Practitioner] - 1 Week (as scheduled for this week) Marquita Carolina MD [STAFF PHYSICIAN] - 1 Week Saul Washington MD [REFERRING] - 12/16/16 2:00 pm [facility] Visiting Nurse, [NON-STAFF] - Patient Instructions/Handouts: Urinary Tract Infection in Women (DC), Syncope ( DC) Discharge Disposition: HOME SELF-CARE
--- NOTE | 2016-12-09 17:08 | PN ---
Mrs. Cardoso is a 81-year-old female with a history of hypertension, prior history of smoking who recently was diagnosed with lung cancer. She has been receiving chemotherapy. She presented with syncopal episode. She is doing well today. She is feeling better. She is denying any symptoms of chest pain. She denies any dizziness, palpitation. She denies any nausea. She continues on amlodipine 2.5 mg daily and methylprednisolone, insulin and albuterol. PHYSICAL EXAMINATION: Blood pressure 139/60 with a heart in the 90s. Lungs with mild decreased breath sounds. No wheezes. HEART: Regular rate rhythm. S1, S2, no S3, no rub. ABDOMEN: Soft, nontender. EXTREMITIES: No edema. Lab data revealed white blood cells 34 and 0.6 thousand, hemoglobin of 7.6, BUN and creatinine 30 and 0.64. Potassium of 4.8. Her FT4 is 1.33. Her echocardiogram revealed preserved left ventricular size and systolic function with no significant valvular disease. IMPRESSION: 1. Syncope most likely hypotensive in origin. 2. Lung cancer. 3. Prior history of hypertension. 4. Prior history of smoking. RECOMMENDATION: From the cardiac standpoint, will continue on the present dose of amlodipine. If her pressure is on the low side, I will stop it completely. Her carotid duplex done and revealed moderate obstructive disease but I doubt has anything to do with her presentation. We will follow her renal function. Increase her level of activity and depending on her progress, further recommendation will be made.
--- NOTE | 2016-12-10 05:49 | EEG ---
DATE OF SERVICE: 12/09/2016 REASON FOR TESTING: Syncope. AGE: 81Y DESCRIPTION OF THE PROCEDURE: From the beginning of the tracing, and with the patient's eyes closed, the background rhythm was mostly consisting of 8 to 9 Hz alpha frequency in the posterior occipital leads. No obvious asymmetry is seen. Frequent movement artifacts and muscle artifacts are seen. Photic stimulation was performed with a minimal driving response seen. No pathological waves were elicited. Hyperventilation was not performed. The patient remains awake throughout the tracing. No epileptiform discharges were seen. Her EKG lead showed a regular rate and rhythm. INTERPRETATION: This awake EEG can be considered within normal limits. There was no asymmetry seen. No epileptiform discharges were noticed. The absence of epileptiform discharges does not rule out the diagnosis of epilepsy, therefore, clinical correlation is recommended.
== END 2016-12-09 15:48 | disposition home health service (06) | DRG 315 ==
LOC: EC 16:30 → 6SEL 19:16
PROVIDERS: ADMIT Family Medicine; ATTEND Family Medicine
DX: I95.9 Hypotension, unspecified (principal); J44.1 Chronic obstructive pulmonary disease with (acute) exacerbation; C78.1 Secondary malignant neoplasm of mediastinum; N39.0 Urinary tract infection, site not specified; D70.1 Agranulocytosis secondary to cancer chemotherapy; C34.91 Malignant neoplasm of unspecified part of right bronchus or lung; D72.823 Leukemoid reaction; I10 Essential (primary) hypertension; D64.81 Anemia due to antineoplastic chemotherapy; I65.23 Occlusion and stenosis of bilateral carotid arteries; M19.90 Unspecified osteoarthritis, unspecified site; F32.9 Major depressive disorder, single episode, unspecified; T48.6X6A Underdosing of antiasthmatics, initial encounter; T45.1X5A Adverse effect of antineoplastic and immunosuppressive drugs, initial encounter; J98.01 Acute bronchospasm; D32.9 Benign neoplasm of meninges, unspecified; T46.4X5A Adverse effect of angiotensin-converting-enzyme inhibitors, initial encounter; K57.90 Diverticulosis of intestine, part unspecified, without perforation or abscess without bleeding; E78.5 Hyperlipidemia, unspecified; K59.00 Constipation, unspecified; Z87.891 Personal history of nicotine dependence; Z83.3 Family history of diabetes mellitus; Z80.3 Family history of malignant neoplasm of breast; Z80.1 Family history of malignant neoplasm of trachea, bronchus and lung; Z79.899 Other long term (current) drug therapy; Z90.49 Acquired absence of other specified parts of digestive tract; Z90.710 Acquired absence of both cervix and uterus; Z98.49 Cataract extraction status, unspecified eye; Z92.21 Personal history of antineoplastic chemotherapy; Z91.120 Patient's intentional underdosing of medication regimen due to financial hardship
CPT/HCPCS: 36415; 70450; 71020; 80048; 80053; 81001; 82550; 82553; 83036; 84439; 84443; 84484; 85025; 85027; 85610; 85730; 93005; 93306; 93880; 95816; 96360; 96361; 99285

== ENCOUNTER 2016-12-11 14:54 | Inpatient (IN) | payer MEDICARE, BC ==
[2016-12-11] MEDS ORDERED: SODIUM CHLORIDE 0.9% 500 ML IV STA (15:58)
[2016-12-11] MEDS ORDERED: SODIUM CHLORIDE 0.9% 1,000 ML IV STA ×4 (15:58→19:55)
[2016-12-11] MEDS ORDERED: DICYCLOMINE 10 MG/ML 2 ML AMP IM STA (16:06)
[2016-12-11] MEDS ORDERED: MAGNESIUM CITRATE 296 ML BOTTLE PO ONE (16:06)
[2016-12-11] MEDS ORDERED: KETOROLAC 30 MG/ML 1 ML VIAL IVP STA (16:06)
[2016-12-11] MEDS ORDERED: ACETAMINOPHEN IV (For NPO) 1,000 MG in EMPTY BAG 1 BAG IVPB STA (16:06)
[2016-12-11] MEDS ORDERED: SENNOSIDES-DOCUSATE SODIUM 1 EACH TAB PO STA (16:06)
[2016-12-11] MEDS ORDERED: GLYCERIN ADULT SUPPOSITORY 1 EACH RECTAL STA (16:06)
--- NOTE | 2016-12-11 16:09 | ED ---
General Adult HPI - General Chief complaint: Abdominal Pain Stated complaint: weakness/nausea/constipated-chemo pt-sent by Time Seen by Provider: 12/11/16 15:58 Source: patient, RN notes reviewed, old records reviewed Mode of arrival: wheelchair Limitations: no limitations - History of Present Illness Initial comments: This is a 81 female to the ED co abdominal pain, constipation, and weakness. Patient has medical history significant for CVA, recent syncopal event, abdominal surgery with ostomy. Patient has not had a bowel movement in about a week, appetites been decreased with severe abdominal pain. No no vomiting, positive nausea, positive bowel pain, and again no recent bowel movement no diarrhea and no flatulence. No fevers. No other complaints - Related Data Home Medications Medication Instructions Recorded Confirmed Citalopram Hydrobromide [CeleXA] 10 mg PO DAILY 12/07/16 12/11/16 Albuterol Sulfate [Proventil Hfa] 2 puff INHALATION RT-Q6H PRN 12/11/16 12/11/16 Budesonide-Formot 160-4.5 Mcg 2 puff INHALATION RT-BID 12/11/16 12/11/16 [Symbicort 160-4.5 Mcg Inhaler] Levofloxacin [Levaquin] 250 mg PO DAILY 12/11/16 12/11/16 Sennosides-Docusate Sodium 1 tab PO DAILY 12/11/16 12/11/16 [Senokot-S] predniSONE See Taper PO DAILY 12/11/16 12/11/16 Previous Rx's Medication Instructions Recorded Polyethylene Glycol 3350 [Miralax] 17 gm PO Q3D PRN #30 packet 12/09/16 amLODIPine [Norvasc] 2.5 mg PO BID #0 12/09/16 Allergies Allergy/AdvReac Type Severity Reaction Status Date / Time No Known Allergies Allergy Verified 12/11/16 16:32 Review of Systems ROS Statement: Those systems with pertinent positive or pertinent negative responses have been documented in the HPI. ROS Other: All systems not noted in ROS Statement are negative. Past Medical History Past Medical History: Cancer, COPD, Hyperlipidemia, Hypertension, Osteoarthritis (OA), Respiratory Disorder, Syncope Additional Past Medical History / Comment(s): Lung Cancer diagnosis in September 2016, currently receiving chemotherapy. History of Any Multi-Drug Resistant Organisms: None Reported Past Surgical History: Appendectomy, Hysterectomy Additional Past Surgical History / Comment(s): colostomy reversal 2008, cataracts Past Anesthesia/Blood Transfusion Reactions: No Reported Reaction Past Psychological History: Depression Smoking Status: Former smoker Past Alcohol Use History: None Reported Additional Past Alcohol Use History / Comment(s): Used to drink a few drinks per day. Since CA diagnosis, has only recently had a couple drinks in the past week. Quit smoking in September 2016. Past Drug Use History: None Reported - Past Family History Mother Family Medical History: Cancer Additional Family Medical History / Comment(s): Mother had lung CA diagnosed at 90 years old. Brother(s) Family Medical History: Diabetes Mellitus Daughter(s) Family Medical History: Cancer Additional Family Medical History / Comment(s): Daughter had breast CA in 2006 General Exam Limitations: no limitations General appearance: alert, in no apparent distress, anxious, in distress Head exam: Present: atraumatic, normocephalic, normal inspection Eye exam: Present: normal appearance, PERRL, EOMI. Absent: scleral icterus, conjunctival injection, periorbital swelling ENT exam: Present: mucous membranes dry, mucous membranes moist Neck exam: Present: normal inspection. Absent: tenderness, meningismus, lymphadenopathy Respiratory exam: Present: normal lung sounds bilaterally. Absent: respiratory distress, wheezes, rales, rhonchi, stridor Cardiovascular Exam: Present: regular rate, normal rhythm, normal heart sounds. Absent: systolic murmur, diastolic murmur, rubs, gallop, clicks GI/Abdominal exam: Present: soft, normal bowel sounds, hypoactive bowel sounds. Absent: distended, tenderness, guarding, rebound, rigid Extremities exam: Present: normal inspection, full ROM, normal capillary refill. Absent: tenderness, pedal edema, joint swelling, calf tenderness Back exam: Present: normal inspection Neurological exam: Present: alert, oriented X3, CN II-XII intact Psychiatric exam: Present: normal affect, normal mood Skin exam: Present: warm, dry, intact, normal color. Absent: rash Course Vital Signs 12/11/16 12/11/16 15:53 17:42 Temperature 97.9 F Pulse Rate 78 80 Respiratory 20 16 Rate Blood Pressure 108/58 114/64 O2 Sat by Pulse 98 99 Oximetry - Reevaluation(s) Reevaluation #1: 12/11/16 19:18 Patient pain was resolved with mild pain medication Reevaluation #2: 12/11/16 19:18 Patient did have positive bowel movement here in emergency room EKG Findings - EKG Comments: EKG Findings:: EKG shows sinus rhythm rate of 81, IA 146, QRS 86, QTc 464 Medical Decision Making - Medical Decision Making [place] female here with abdominal pain secondary to constipation no bowel movement in a week. CT is significant for distinctive amount of stool. Lab is normal aside from dehydration. Patient's pain is improved, she did have mild bowel movement here in emergency, patient will be discharged home - Lab Data Result diagrams: 12/11/16 16:25 12/11/16 16:25 Lab Results 12/11/16 12/11/16 12/11/16 Range/Units 16:25 16:25 16:25 WBC 5.6 (3.8-10.6) k/uL RBC 2.46 L (3.80-5.40) m/uL Hgb 8.1 L (11.4-16.0) gm/dL Hct 23.8 L (34.0-46.0) % MCV 96.7 (80.0-100.0) fL MCH 33.0 (25.0-35.0) pg MCHC 34.1 (31.0-37.0) g/dL RDW 17.8 H (11.5-15.5) % Plt Count 284 (150-450) k/uL Neutrophils % 76 % Lymphocytes % 18 % Monocytes % 4 % Eosinophils % 0 % Basophils % 0 % Neutrophils # 4.2 (1.3-7.7) k/uL Lymphocytes # 1.0 (1.0-4.8) k/uL Monocytes # 0.2 (0-1.0) k/uL Eosinophils # 0.0 (0-0.7) k/uL Basophils # 0.0 (0-0.2) k/uL Anisocytosis Slight Macrocytosis Slight Sodium 140 (137-145) mmol/L Potassium 4.8 (3.5-5.1) mmol/L Chloride 104 (98-107) mmol/L Carbon Dioxide 21 L (22-30) mmol/L Anion Gap 15 mmol/L BUN 31 H (7-17) mg/dL Creatinine 0.87 (0.52-1.04) mg/dL Est GFR (MDRD) Af Amer >60 (>60 ml/min/1.73 sqM) Est GFR (MDRD) Non-Af >60 (>60 ml/min/1.73 sqM) Glucose 124 H (74-99) mg/dL Plasma Lactic Acid Tavares (0.7-2.0) mmol/L Calcium 10.3 H (8.4-10.2) mg/dL Phosphorus 3.6 (2.5-4.5) mg/dL Magnesium 2.1 (1.6-2.3) mg/dL Total Bilirubin 1.1 (0.2-1.3) mg/dL AST 42 H (14-36) U/L ALT 128 H (9-52) U/L Alkaline Phosphatase 137 H (38-126) U/L Total Creatine Kinase <20 L (30-135) U/L CK-MB (CK-2) <0.2 (0.0-2.4) ng/mL CK-MB (CK-2) Rel Index Troponin I <0.012 (0.000-0.034) ng/mL Total Protein 6.7 (6.3-8.2) g/dL Albumin 3.9 (3.5-5.0) g/dL Urine Color Urine Appearance (Clear) Urine pH (5.0-8.0) Ur Specific [place] (1.001-1.035) Urine Protein (Negative) Urine Glucose (UA) (Negative) Urine Ketones (Negative) Urine Blood (Negative) Urine Nitrate (Negative) Urine Bilirubin (Negative) Urine Urobilinogen (<2.0) mg/dL Ur Leukocyte Esterase (Negative) Urine RBC (0-5) /hpf Urine WBC (0-5) /hpf Ur Squamous Epith Cells (0-4) /hpf Urine Bacteria (None) /hpf Urine Mucus (None) /hpf Blood Type Blood Type Confirm Blood Type Recheck Antibody Screen Spec Expiration Date 12/11/16 12/11/16 12/11/16 Range/Units 16:25 16:25 17:55 WBC (3.8-10.6) k/uL RBC (3.80-5.40) m/uL Hgb (11.4-16.0) gm/dL Hct (34.0-46.0) % MCV (80.0-100.0) fL MCH (25.0-35.0) pg MCHC (31.0-37.0) g/dL RDW (11.5-15.5) % Plt Count (150-450) k/uL Neutrophils % % Lymphocytes % % Monocytes % % Eosinophils % % Basophils % % Neutrophils # (1.3-7.7) k/uL Lymphocytes # (1.0-4.8) k/uL Monocytes # (0-1.0) k/uL Eosinophils # (0-0.7) k/uL Basophils # (0-0.2) k/uL Anisocytosis Macrocytosis Sodium (137-145) mmol/L Potassium (3.5-5.1) mmol/L Chloride (98-107) mmol/L Carbon Dioxide (22-30) mmol/L Anion Gap mmol/L BUN (7-17) mg/dL Creatinine (0.52-1.04) mg/dL Est GFR (MDRD) Af Amer (>60 ml/min/1.73 sqM) Est GFR (MDRD) Non-Af (>60 ml/min/1.73 sqM) Glucose (74-99) mg/dL Plasma Lactic Acid Tavares 4.3 H* (0.7-2.0) mmol/L Calcium (8.4-10.2) mg/dL Phosphorus (2.5-4.5) mg/dL Magnesium (1.6-2.3) mg/dL Total Bilirubin (0.2-1.3) mg/dL AST (14-36) U/L ALT (9-52) U/L Alkaline Phosphatase (38-126) U/L Total Creatine Kinase (30-135) U/L CK-MB (CK-2) (0.0-2.4) ng/mL CK-MB (CK-2) Rel Index Troponin I (0.000-0.034) ng/mL Total Protein (6.3-8.2) g/dL Albumin (3.5-5.0) g/dL Urine Color Urine Appearance (Clear) Urine pH (5.0-8.0) Ur Specific [place] (1.001-1.035) Urine Protein (Negative) Urine Glucose (UA) (Negative) Urine Ketones (Negative) Urine Blood (Negative) Urine Nitrate (Negative) Urine Bilirubin (Negative) Urine Urobilinogen (<2.0) mg/dL Ur Leukocyte Esterase (Negative) Urine RBC (0-5) /hpf Urine WBC (0-5) /hpf Ur Squamous Epith Cells (0-4) /hpf Urine Bacteria (None) /hpf Urine Mucus (None) /hpf Blood Type A Positive Blood Type Confirm A Positive Blood Type Recheck CABO Indicated Antibody Screen NEGATIVE Spec Expiration Date 12/14/2016232412/11/16 Range/Units 18:00 WBC (3.8-10.6) k/uL RBC (3.80-5.40) m/uL Hgb (11.4-16.0) gm/dL Hct (34.0-46.0) % MCV (80.0-100.0) fL MCH (25.0-35.0) pg MCHC (31.0-37.0) g/dL RDW (11.5-15.5) % Plt Count (150-450) k/uL Neutrophils % % Lymphocytes % % Monocytes % % Eosinophils % % Basophils % % Neutrophils # (1.3-7.7) k/uL Lymphocytes # (1.0-4.8) k/uL Monocytes # (0-1.0) k/uL Eosinophils # (0-0.7) k/uL Basophils # (0-0.2) k/uL Anisocytosis Macrocytosis Sodium (137-145) mmol/L Potassium (3.5-5.1) mmol/L Chloride (98-107) mmol/L Carbon Dioxide (22-30) mmol/L Anion Gap mmol/L BUN (7-17) mg/dL Creatinine (0.52-1.04) mg/dL Est GFR (MDRD) Af Amer (>60 ml/min/1.73 sqM) Est GFR (MDRD) Non-Af (>60 ml/min/1.73 sqM) Glucose (74-99) mg/dL Plasma Lactic Acid Tavares (0.7-2.0) mmol/L Calcium (8.4-10.2) mg/dL Phosphorus (2.5-4.5) mg/dL Magnesium (1.6-2.3) mg/dL Total Bilirubin (0.2-1.3) mg/dL AST (14-36) U/L ALT (9-52) U/L Alkaline Phosphatase (38-126) U/L Total Creatine Kinase (30-135) U/L CK-MB (CK-2) (0.0-2.4) ng/mL CK-MB (CK-2) Rel Index Troponin I (0.000-0.034) ng/mL Total Protein (6.3-8.2) g/dL Albumin (3.5-5.0) g/dL Urine Color Yellow Urine Appearance Turbid H (Clear) Urine pH 6.5 (5.0-8.0) Ur Specific [place] 1.030 (1.001-1.035) Urine Protein 1+ H (Negative) Urine Glucose (UA) Negative (Negative) Urine Ketones Negative (Negative) Urine Blood Moderate H (Negative) Urine Nitrate Negative (Negative) Urine Bilirubin Negative (Negative) Urine Urobilinogen <2.0 (<2.0) mg/dL Ur Leukocyte Esterase Large H (Negative) Urine RBC 152 H (0-5) /hpf Urine WBC 37 H (0-5) /hpf Ur Squamous Epith Cells 6 H (0-4) /hpf Urine Bacteria Few H (None) /hpf Urine Mucus Rare H (None) /hpf Blood Type Blood Type Confirm Blood Type Recheck Antibody Screen Spec Expiration Date Disposition Clinical Impression: Abdominal pain, Dehydration, Constipation Disposition: HOME SELF-CARE Condition: Good Instructions: Abdominal Pain (ED), Constipation (ED) Referrals: Saul Washington MD [Primary Care Provider] - 1-2 days
[2016-12-11 16:42] LABS: Anisocytosis Slight; Basophils % (A) 0 %; CH 31.7; Eosinophils % (A) 0 %; HCT 23.8 % (34.0-46.0); HDW 2.59; HGB 8.1 gm/dL (11.4-16.0); Luc # (Auto) 0.05; Luc % (Auto) 1; Lymphocytes % (A) 18 %; MCHC 34.1 g/dL (31.0-37.0); MCV 96.7 fL (80.0-100.0); Macrocytosis Slight; Mean Platelet Volume 8.8; Monocytes # (A) 0.2 k/uL (0-1.0); Monocytes % (A) 4 %; Neutrophils # (A) 4.2 k/uL (1.3-7.7); Neutrophils % (A) 76 %; RBC 2.46 m/uL (3.80-5.40); RDW 17.8 % (11.5-15.5); WBC 5.6 k/uL (3.8-10.6); WBC (Perox) 5.42
[2016-12-11 16:59] LABS: ALT 128 U/L (9-52); AST 42 U/L (14-36); Alkaline Phosphatase 137 U/L (38-126); Anion Gap 15 mmol/L; Blood Urea Nitrogen 31 mg/dL (7-17); Calcium 10.3 mg/dL (8.4-10.2); Carbon Dioxide 21 mmol/L (22-30); Chloride 104 mmol/L (98-107); Glucose 124 mg/dL (74-99); Magnesium 2.1 mg/dL (1.6-2.3); Non-African American GFR(MDRD) >60 (>60 ml/min/1.73 sqM); Phosphorous 3.6 mg/dL (2.5-4.5); Potassium 4.8 mmol/L (3.5-5.1); Sodium 140 mmol/L (137-145); Total Bilirubin 1.1 mg/dL (0.2-1.3); Total Protein 6.7 g/dL (6.3-8.2)
[2016-12-11] MEDS ORDERED: RX INFO: IV CONTRAST WAS GIVEN 1 EACH MISC MISCELLANE PRN (17:08)
[2016-12-11 17:15] LABS: Creatine Kinase MB <0.2 ng/mL (0.0-2.4)
[2016-12-11 17:22] LABS: Creatine Kinase <20 U/L (30-135)
[2016-12-11 17:33] LABS: Troponin I <0.012 ng/mL (0.000-0.034)
--- NOTE | 2016-12-11 18:05 | XR ---
EXAMINATION TYPE: XR abdomen acute w cxr DATE OF EXAM: 12/11/2016 5:07 PM COMPARISON: Chest radiographs December 07, 2016 HISTORY: History right lung carcinoma TECHNIQUE: Supine, upright, and left side down lateral decubitus views of the abdomen are obtained. FINDINGS: Chronic right pleural-parenchymal changes appreciated. Negative for pneumothorax or pulmon stephen edema. There is no evidence for pneumoperitoneum. The bowel gas pattern is unremarkable as there is air thr oughout nondilated small and large bowel. However, there is a, of prominent stool from the splenic f lexure down to the anal verge. No sizeable air fluid levels. No mass effects are seen. No unusual ca lcifications. IMPRESSION: No acute process but evident constipation.
[2016-12-11 18:14] LABS: Appearance,Urine Turbid (Clear); Bacteria,Urine Few /hpf; Bilirubin,Urine Negative (Negative); Glucose,Urine (UA) Negative (Negative); Ketones,Urine Negative (Negative); Leukocyte Esterase,Urine Large (Negative); Mucus,Urine Rare /hpf; Nitrite,Urine Negative (Negative); PH, Urine 6.5 (5.0-8.0); Particle Count 96247; Protein,Urine 1+ (Negative); RBC,Urine 152 /hpf (0-5); Squamous Epithelial Cell,Urine 6 /hpf (0-4); UA Billing (MACRO vs. MICRO) MICRO; Urobilinogen,Urine <2.0 mg/dL (<2.0); WBC,Urine 37 /hpf (0-5)
--- NOTE | 2016-12-11 18:16 | CT ---
EXAMINATION TYPE: CT abdomen pelvis w con DATE OF EXAM: 12/11/2016 5:52 PM COMPARISON: NONE HISTORY: Constipation and Generalized pain CT DLP: 622.6 mGycm Automated exposure control for dose reduction was used. TECHNIQUE: Helical acquisition of images was performed from the lung bases through the pelvis. CONTRAST: Performed without Oral Contrast and with IV Contrast, patient injected with 100 mL of Omnipaque 300. FINDINGS: LUNG BASES: No significant abnormality is appreciated. LIVER/GB: No significant abnormality is appreciated. PANCREAS: No significant abnormality is seen. SPLEEN: No significant abnormality is seen. ADRENALS: No significant abnormality is seen. KIDNEYS: No significant abnormality is seen. RETROPERITONEAL ADENOPATHY: None visualized REPRODUCTIVE ORGANS: No significant abnormality is seen URINARY BLADDER: No significant abnormality is seen. PELVIC ADENOPATHY: None visualized. OSSEOUS STRUCTURES: No significant abnormality is seen. BOWEL: There is a prominent volume pancolonic stool down to the anal verge. IMPRESSION: PROMINENT COLONIC CONSTIPATION.
--- NOTE | 2016-12-11 20:04 | ED ---
Medical Decision Making - Medical Decision Making Started female in the ER for evaluation of abdominal pain constipation, she does have urinary check infection and reevaluation no bowel movement. Patient will be admitted for recurrent enemas, IV resuscitation and bowel regimen. - Lab Data Result diagrams: 12/11/16 16:25 12/11/16 16:25 Lab Results 12/11/16 12/11/16 12/11/16 Range/Units 16:25 16:25 16:25 WBC 5.6 (3.8-10.6) k/uL RBC 2.46 L (3.80-5.40) m/uL Hgb 8.1 L (11.4-16.0) gm/dL Hct 23.8 L (34.0-46.0) % MCV 96.7 (80.0-100.0) fL MCH 33.0 (25.0-35.0) pg MCHC 34.1 (31.0-37.0) g/dL RDW 17.8 H (11.5-15.5) % Plt Count 284 (150-450) k/uL Neutrophils % 76 % Lymphocytes % 18 % Monocytes % 4 % Eosinophils % 0 % Basophils % 0 % Neutrophils # 4.2 (1.3-7.7) k/uL Lymphocytes # 1.0 (1.0-4.8) k/uL Monocytes # 0.2 (0-1.0) k/uL Eosinophils # 0.0 (0-0.7) k/uL Basophils # 0.0 (0-0.2) k/uL Anisocytosis Slight Macrocytosis Slight Sodium 140 (137-145) mmol/L Potassium 4.8 (3.5-5.1) mmol/L Chloride 104 (98-107) mmol/L Carbon Dioxide 21 L (22-30) mmol/L Anion Gap 15 mmol/L BUN 31 H (7-17) mg/dL Creatinine 0.87 (0.52-1.04) mg/dL Est GFR (MDRD) Af Amer >60 (>60 ml/min/1.73 sqM) Est GFR (MDRD) Non-Af >60 (>60 ml/min/1.73 sqM) Glucose 124 H (74-99) mg/dL Plasma Lactic Acid Tava[place] (0.7-2.0) mmol/L Calcium 10.3 H (8.4-10.2) mg/dL Phosphorus 3.6 (2.5-4.5) mg/dL Magnesium 2.1 (1.6-2.3) mg/dL Total Bilirubin 1.1 (0.2-1.3) mg/dL AST 42 H (14-36) U/L ALT 128 H (9-52) U/L Alkaline Phosphatase 137 H (38-126) U/L Total Creatine Kinase <20 L (30-135) U/L CK-MB (CK-2) <0.2 (0.0-2.4) ng/mL CK-MB (CK-2) Rel Index Troponin I <0.012 (0.000-0.034) ng/mL Total Protein 6.7 (6.3-8.2) g/dL Albumin 3.9 (3.5-5.0) g/dL Urine Color Urine Appearance (Clear) Urine pH (5.0-8.0) Ur Specific [place] (1.001-1.035) Urine Protein (Negative) Urine Glucose (UA) (Negative) Urine Ketones (Negative) Urine Blood (Negative) Urine Nitrate (Negative) Urine Bilirubin (Negative) Urine Urobilinogen (<2.0) mg/dL Ur Leukocyte Esterase (Negative) Urine RBC (0-5) /hpf Urine WBC (0-5) /hpf Ur Squamous Epith Cells (0-4) /hpf Urine Bacteria (None) /hpf Urine Mucus (None) /hpf Blood Type Blood Type Confirm Blood Type Recheck Antibody Screen Spec Expiration Date 12/11/16 12/11/16 12/11/16 Range/Units 16:25 16:25 17:55 WBC (3.8-10.6) k/uL RBC (3.80-5.40) m/uL Hgb (11.4-16.0) gm/dL Hct (34.0-46.0) % MCV (80.0-100.0) fL MCH (25.0-35.0) pg MCHC (31.0-37.0) g/dL RDW (11.5-15.5) % Plt Count (150-450) k/uL Neutrophils % % Lymphocytes % % Monocytes % % Eosinophils % % Basophils % % Neutrophils # (1.3-7.7) k/uL Lymphocytes # (1.0-4.8) k/uL Monocytes # (0-1.0) k/uL Eosinophils # (0-0.7) k/uL Basophils # (0-0.2) k/uL Anisocytosis Macrocytosis Sodium (137-145) mmol/L Potassium (3.5-5.1) mmol/L Chloride (98-107) mmol/L Carbon Dioxide (22-30) mmol/L Anion Gap mmol/L BUN (7-17) mg/dL Creatinine (0.52-1.04) mg/dL Est GFR (MDRD) Af Amer (>60 ml/min/1.73 sqM) Est GFR (MDRD) Non-Af (>60 ml/min/1.73 sqM) Glucose (74-99) mg/dL Plasma Lactic Acid Tava[place] 4.3 H* (0.7-2.0) mmol/L Calcium (8.4-10.2) mg/dL Phosphorus (2.5-4.5) mg/dL Magnesium (1.6-2.3) mg/dL Total Bilirubin (0.2-1.3) mg/dL AST (14-36) U/L ALT (9-52) U/L Alkaline Phosphatase (38-126) U/L Total Creatine Kinase (30-135) U/L CK-MB (CK-2) (0.0-2.4) ng/mL CK-MB (CK-2) Rel Index Troponin I (0.000-0.034) ng/mL Total Protein (6.3-8.2) g/dL Albumin (3.5-5.0) g/dL Urine Color Urine Appearance (Clear) Urine pH (5.0-8.0) Ur Specific [place] (1.001-1.035) Urine Protein (Negative) Urine Glucose (UA) (Negative) Urine Ketones (Negative) Urine Blood (Negative) Urine Nitrate (Negative) Urine Bilirubin (Negative) Urine Urobilinogen (<2.0) mg/dL Ur Leukocyte Esterase (Negative) Urine RBC (0-5) /hpf Urine WBC (0-5) /hpf Ur Squamous Epith Cells (0-4) /hpf Urine Bacteria (None) /hpf Urine Mucus (None) /hpf Blood Type A Positive Blood Type Confirm A Positive Blood Type Recheck CABO Indicated Antibody Screen NEGATIVE Spec Expiration Date 12/14/2016 - 232412/11/16 Range/Units 18:00 WBC (3.8-10.6) k/uL RBC (3.80-5.40) m/uL Hgb (11.4-16.0) gm/dL Hct (34.0-46.0) % MCV (80.0-100.0) fL MCH (25.0-35.0) pg MCHC (31.0-37.0) g/dL RDW (11.5-15.5) % Plt Count (150-450) k/uL Neutrophils % % Lymphocytes % % Monocytes % % Eosinophils % % Basophils % % Neutrophils # (1.3-7.7) k/uL Lymphocytes # (1.0-4.8) k/uL Monocytes # (0-1.0) k/uL Eosinophils # (0-0.7) k/uL Basophils # (0-0.2) k/uL Anisocytosis Macrocytosis Sodium (137-145) mmol/L Potassium (3.5-5.1) mmol/L Chloride (98-107) mmol/L Carbon Dioxide (22-30) mmol/L Anion Gap mmol/L BUN (7-17) mg/dL Creatinine (0.52-1.04) mg/dL Est GFR (MDRD) Af Amer (>60 ml/min/1.73 sqM) Est GFR (MDRD) Non-Af (>60 ml/min/1.73 sqM) Glucose (74-99) mg/dL Plasma Lactic Acid [place] (0.7-2.0) mmol/L Calcium (8.4-10.2) mg/dL Phosphorus (2.5-4.5) mg/dL Magnesium (1.6-2.3) mg/dL Total Bilirubin (0.2-1.3) mg/dL AST (14-36) U/L ALT (9-52) U/L Alkaline Phosphatase (38-126) U/L Total Creatine Kinase (30-135) U/L CK-MB (CK-2) (0.0-2.4) ng/mL CK-MB (CK-2) Rel Index Troponin I (0.000-0.034) ng/mL Total Protein (6.3-8.2) g/dL Albumin (3.5-5.0) g/dL Urine Color Yellow Urine Appearance Turbid H (Clear) Urine pH 6.5 (5.0-8.0) Ur Specific [place] 1.030 (1.001-1.035) Urine Protein 1+ H (Negative) Urine Glucose (UA) Negative (Negative) Urine Ketones Negative (Negative) Urine Blood Moderate H (Negative) Urine Nitrate Negative (Negative) Urine Bilirubin Negative (Negative) Urine Urobilinogen <2.0 (<2.0) mg/dL Ur Leukocyte Esterase Large H (Negative) Urine RBC 152 H (0-5) /hpf Urine WBC 37 H (0-5) /hpf Ur Squamous Epith Cells 6 H (0-4) /hpf Urine Bacteria Few H (None) /hpf Urine Mucus Rare H (None) /hpf Blood Type Blood Type Confirm Blood Type Recheck Antibody Screen Spec Expiration Date Disposition Clinical Impression: Abdominal pain, Dehydration, Constipation, UTI (urinary tract infection), Lactic acidosis Disposition: ADMITTED IP TO THIS [facility] Condition: Good Instructions: Constipation (ED), Abdominal Pain (ED) Referrals: Saul Washington MD [Primary Care Provider] - 1-2 days
[2016-12-11] MEDS ORDERED: MAGNESIUM HYDROXIDE 2,400 MG/10 ML CUP PO PRN (20:05)
[2016-12-11] MEDS: SENNOSIDES-DOCUSATE SODIUM 1 EACH TAB PO SCH (22:40)
[2016-12-11 23:04] VITALS: BMI 27.6
[2016-12-12] MEDS: SENNOSIDES-DOCUSATE SODIUM 1 EACH TAB PO SCH ×2 (08:46→19:59)
[2016-12-12] MEDS: ENOXAPARIN 40 MG/0.4 ML SYRINGE SQ SCH (08:46)
[2016-12-12] MEDS ORDERED: cefTRIAXone 1,000 MG in SODIUM CHLORIDE 0.9% 100 ML IVPB SCH (09:00)
[2016-12-12 11:18] LABS: ALT 102 U/L (9-52); AST 30 U/L (14-36); Alkaline Phosphatase 90 U/L (38-126); Anion Gap 7 mmol/L; Blood Urea Nitrogen 18 mg/dL (7-17); Calcium 8.4 mg/dL (8.4-10.2); Carbon Dioxide 22 mmol/L (22-30); Chloride 108 mmol/L (98-107); Glucose 97 mg/dL (74-99); Non-African American GFR(MDRD) >60 (>60 ml/min/1.73 sqM); Potassium 3.9 mmol/L (3.5-5.1); Sodium 137 mmol/L (137-145); Total Bilirubin 1.1 mg/dL (0.2-1.3)
[2016-12-12] MEDS ORDERED: SODIUM CHLORIDE 0.9% 500 ML IV ONE (17:27)
[2016-12-12] MEDS ORDERED: MAGNESIUM CITRATE 296 ML BOTTLE PO ONE (17:48)
--- NOTE | 2016-12-12 21:54 | CONS ---
REASON FOR CONSULTATION: Abdominal pain and constipation. HISTORY: Ruth is a 81-year-old female who was sent into the emergency department by the oncologist. She was weak, nauseated and been very constipated. She had not had a bowel movement in about a week. Her appetite was decreased. She received several things overnight and has had bowel movements and is feeling better. No fevers. No chills. No vomiting. She did have a colonoscopy done a couple years ago by Dr. Mejia, which was unremarkable. Past medical history includes lung cancer COPD, hypertension, hyperlipidemia, arthritis, syncope. PAST SURGICAL HISTORY: Appendectomy, hysterectomy, Anita procedure for diverticulitis with reversal of colostomy, cataract surgery. Medications as an outpatient included: 1. Celexa. 2. Proventil. 3. Symbicort. 4. Levaquin. 5. Senokot. 6. Prednisone taper. 7. MiraLax. 8. Norvasc. ALLERGIES: None. SOCIAL: Former smoker. No alcohol use on a regular basis. Quit smoking September 2016. FAMILY HISTORY: Mother had lung cancer, daughter had breast cancer. PHYSICAL EXAMINATION: A 81-year-old female, alert and oriented x3. Pulse was 83, respirations 16, blood pressure was 85/55, afebrile, satting 93% on room air. Heart was regular rate and rhythm. Lungs were somewhat diminished bilaterally. No wheezes. Abdomen is softly distended. Some tenderness to percussion in the epigastrium without guarding or rebound. No mass. LAB: Her hemoglobin was 8.1. Sodium and potassium are within normal range. Her lactic acid last night 4.3. It was down to 2.4 on repeat UA, suggestive of urinary tract infection with hematuria, a large amount of leukocyte esterase, WBCs, bacteria, mucus. CT scan of the abdomen and pelvis showed some pretty significant constipation with colonic distention of the ascending, transverse, descending, sigmoid and rectum with stool. No evidence of any obstruction. ASSESSMENT: 1. Severe constipation/obstipation with nausea resulting from that. 2. Urinary tract infection with sepsis as demonstrated by increased lactic acid. PLAN: She has had some additional bowel movements today. Will continue the scheduled Senokot and recheck her tomorrow. Currently nonsurgical.
[2016-12-12] MEDS ORDERED: ALBUTEROL NEBULIZED 2.5 MG/3 ML INHALATION PRN (22:06)
[2016-12-12] MEDS ORDERED: POLYETHYLENE GLYCOL 3350 17 GM POWD.PACK PO PRN (22:06)
--- NOTE | 2016-12-12 22:09 | P.HPIM ---
History of Present Illness H&P Date: 12/12/16 Chief Complaint: Urine frequency abdominal pain constipation Patient is a 81 year old female with history of COPD recently diagnosed lung cancer September 2016 hypertension chronic tobacco dependence quit September 2016 recently admitted to the ER last 12/08/2016 discharge 12/09/2016 with acute episode of loss of consciousness which lasted for less than a minute . she was having dinner was found to have a witnessed episode of syncope patient was incoherent and unconscious at that time there was no tonic-clonic contractions of the upper and lower extremity there is no urinary incontinence or stool incontinence patient was sitting down when this thing happened patient cannot recollect the events occurred during the episode Patient denies any fever and chills there's no hemoptysis patient does not have any purulence in her cough. . Patient denies any coughing spells during the episode of syncope, she recently completed her chemotherapy 2 weeks ago for her lung cancer patient denies any other new changes including neurologic deficits related to the syncope during his last visit she has small amount of WBCs in her urine which is about 6, cultures were not performed at the time however he was started on Levaquin 250 mg daily and prednisone taper for COPD Tech bronchitis exacerbation , patient comes in to emergency room with abdominal pain, urinary frequency, as well as constipation. Patient hasn't had a bowel movement for approximately 7 days, no new medications from home, CAT scan in the emergency room shows prominent pancolonic constipation, no ileus she was subsequently admitted secondary to significant pyuria with a WBC count in the urine of 37, leukocyte esterase large positive, nitrite negative, lactic acidosis lactic acid of 4.2, blood count of 5.6 BUN elevated at 31 creatinine of 0.87 calcium of 10.3. MiraLAX and enemas were provided in the emergency room with some relief Review of Systems Constitutional: Reports as per HPI, Reports chills, Denies anorexia, Denies chronic headaches, Denies chronic pain, Denies daytime sleepiness, Denies fatigue, Denies fever, Denies lethargy, Denies malaise, Denies night sweats, Denies poor appetite, Denies sweats, Denies weakness, Denies weight gain, Denies weight loss Ears, nose, mouth and throat: Reports as per HPI, Denies ant. neck pain, Denies bleeding gums, Denies dental pain, Denies dysphagia, Denies epistaxis, Denies headache, Denies hoarseness, Denies mouth pain, Denies nasal congestion, Denies nasal discharge, Denies neck fullness/pressure, Denies neck lump, Denies nose pain, Denies odynophagia, Denies post-nasal drip, Denies sinus pain, Denies sinus pressure, Denies swelling in mouth, Denies swelling in throat, Denies sore throat, Denies vertigo, Denies voice changes Cardiovascular: Reports as per HPI, Denies chest pain, Denies claudication, Denies decreased exercise tolerance, Denies dyspnea on exertion, Denies edema, Denies high blood pressure, Denies irregular heart beat, Denies leg edema, Denies lightheadedness, Denies orthopnea, Denies palpitations, Denies paroxysmal nocturnal dyspnea, Denies phlebitis, Denies rapid heart beat, Denies shortness of breath, Denies syncope Respiratory: Reports as per HPI, Denies congestion, Denies cough, Denies cough with sputum, Denies dyspnea, Denies excessive sputum, Denies hemoptysis, Denies home oxygen, Denies pain, Denies pain on inspiration, Denies pleurisy, Denies respiratory infections, Denies sleep apnea, Denies snoring, Denies wheezing Gastrointestinal: Reports as per HPI, Reports abdominal pain, Reports early satiety, Reports loss of appetite, Reports nausea, Denies belching, Denies bloating, Denies BRBPR, Denies change in bowel habits, Denies coffee ground emesis, Denies constipation, Denies diarrhea, Denies dyspepsia, Denies excessive gas, Denies heartburn, Denies hematemesis, Denies hematochezia, Denies indigestion, Denies jaundice, Denies lactose intolerance, Denies melena, Denies vomiting Genitourinary: Reports as per HPI, Reports difficulty voiding, Reports urinary frequency, Denies abnormal vaginal bleeding, Denies decreased libido, Denies difficulty conceiving, Denies dysmenorrhea, Denies dyspareunia, Denies dysuria, Denies flank pain, Denies genital sores, Denies hematuria, Denies hot flashes, Denies incomplete emptying, Denies kidney stones, Denies menorrhagia, Denies mixed incontinence, Denies nocturia, Denies pelvic pain, Denies post void dribbling, Denies , Denies prolapse symptoms, Denies stress incontinence , Denies urge incontinence, Denies urgency, Denies vaginal discharge, Denies vaginal dryness, Denies vaginal itching, Denies vaginal odor Menstruation: Reports as per HPI, Reports postmenopausal Musculoskeletal: Reports as per HPI, Denies arm numbness/tingling, Denies atrophy, Denies fractures, Denies frequent falls, Denies gait dysfunction, Denies hot joints, Denies leg numbness/tingling, Denies limitation of motion, Denies loss of height, Denies low back pain, Denies morning stiffness, Denies muscle cramps, Denies muscle weakness, Denies myalgias, Denies neck pain, Denies neck stiffness, Denies prior amputations, Denies redness of joints, Denies shooting arm pain, Denies shooting leg pain Integumentary: Reports as per HPI, Denies acne, Denies boils, Denies brittle nails, Denies change in hair/nails, Denies color changes, Denies darkening of skin, Denies depigmentation, Denies dryness, Denies foot/leg ulcers, Denies growths, Denies hirsutism, Denies lesions, Denies onychomycosis, Denies pruritus , Denies rash, Denies sores, Denies striae, Denies unusual bruising, Denies wounds Neurological: Reports as per HPI, Denies aphasia, Denies ataxia, Denies balance difficulties, Denies burning pain, Denies change in mentation, Denies change in smell/taste, Denies change in speech, Denies confusion, Denies convulsions, Denies double vision, Denies gait dysfunction, Denies head injury, Denies headaches, Denies hearing difficulties, Denies lack of coordination, Denies loss of vision, Denies memory loss, Denies migraines, Denies motor disturbance, Denies numbness, Denies paralysis, Denies paresthesias, Denies seizures, Denies sensory deficit, Denies spasticity, Denies syncope, Denies tic, Denies tingling , Denies transient paralysis, Denies tremors, Denies vertigo, Denies weakness, Denies visual changes Psychiatric: Reports as per HPI, Denies anhedonia, Denies anxiety, Denies anxiety attacks, Denies change in appetite, Denies change in libido, Denies change in sleep habits, Denies confusion, Denies depression, Denies difficulty concentrating, Denies disorientation, Denies hallucinations, Denies hopelessness , Denies hypersomnia, Denies insomnia, Denies irritability, Denies memory loss, Denies mood swings, Denies paranoia, Denies sadness/tearfulness, Denies sleep disturbances, Denies suicidal ideation Endocrine: Reports as per HPI, Denies deepening of the voice, Denies excessive sweating, Denies excessive thirst, Denies fatigue, Denies flushing, Denies heat intolerance, Denies high blood sugars, Denies increase in ring/shoe/hat size, Denies low blood sugars, Denies nocturia, Denies palpitations, Denies polydipsia , Denies polyphagia, Denies polyuria, Denies proptosis, Denies recent glucocorticoid use, Denies thyroid mass, Denies weight change Hematologic/Lymphatic: Reports as per HPI, Denies easy bleeding, Denies easy bruising, Denies lymphadenopathy, Denies lymphedema, Denies thrombophilia Allergic/Immunologic: Denies as per HPI, Denies allergic rhinitis, Denies anaphylaxis, Denies angioedema, Denies gluten intolerance, Denies persistent infections, Denies seasonal allergies, Denies urticaria, Denies wheezing Past Medical History Past Medical History: Cancer, COPD, Hyperlipidemia, Hypertension, Osteoarthritis (OA), Respiratory Disorder, Syncope Additional Past Medical History / Comment(s): Lung Cancer diagnosis in September 2016, currently receiving chemotherapy. History of Any Multi-Drug Resistant Organisms: None Reported Past Surgical History: Appendectomy, Hysterectomy Additional Past Surgical History / Comment(s): colostomy reversal 2008, cataracts Past Anesthesia/Blood Transfusion Reactions: No Reported Reaction Past Psychological History: Depression Smoking Status: Former smoker Past Alcohol Use History: None Reported Additional Past Alcohol Use History / Comment(s): Used to drink a few drinks per day. Since CA diagnosis, has only recently had a couple drinks in the past week. Quit smoking in September 2016. Past Drug Use History: None Reported - Past Family History Mother Family Medical History: Cancer Additional Family Medical History / Comment(s): Mother had lung CA diagnosed at 90 years old. Brother(s) Family Medical History: Diabetes Mellitus Daughter(s) Family Medical History: Cancer Additional Family Medical History / Comment(s): Daughter had breast CA in 2006 Medications and Allergies Home Medications Medication Instructions Recorded Confirmed Type Citalopram Hydrobromide [CeleXA] 10 mg PO DAILY 12/07/16 12/11/16 History Albuterol Sulfate [Proventil Hfa] 2 puff INHALATION RT-Q6H PRN 12/11/16 History Budesonide-Formot 160-4.5 Mcg 2 puff INHALATION RT-BID 12/11/16 12/11/16 History [Symbicort 160-4.5 Mcg Inhaler] Levofloxacin [Levaquin] 250 mg PO DAILY 12/11/16 12/11/16 History Sennosides-Docusate Sodium 1 tab PO DAILY 12/11/16 12/11/16 History [Senokot-S] predniSONE See Taper PO DAILY 12/11/16 12/11/16 History Allergies Allergy/AdvReac Type Severity Reaction Status Date / Time No Known Allergies Allergy Verified 12/11/16 16:32 Physical Exam Vitals: Vital Signs Temp Pulse Pulse Resp BP BP Pulse Ox 12/12/16 18:00 99/53 12/12/16 15:00 97.4 F L 82 16 84/54 98 12/12/16 11:52 76/47 12/12/16 07:00 98.7 F 83 16 85/55 93 L 12/12/16 00:00 19 12/11/16 23:00 96.9 F L 89 19 104/58 94 L 12/11/16 22:01 90 18 103/55 95 Intake and Output 12/12/16 12/12/16 12/12/16 06:59 14:59 22:59 Intake Total 350 200 Balance 350 200 Intake: Oral 350 200 Other: Voiding Method Bedside Commode Bedside Commode Bedside Commode Diaper Diaper Diaper Incontinent Incontinent Incontinent # Voids 1 2 # Bowel Movements 1 4 - Constitutional General appearance: cooperative, no acute distress - EENT Eyes: anicteric sclerae, EOMI, PERRLA, normal appearance ENT: hearing grossly normal, NA/AT, normal oropharynx - Neck Neck: no lymphadenopathy, normal ROM, no other, no rigidity, no stridor, no thyromegaly - Respiratory Respiratory: bilateral: CTA, negative: diminished, dullness, rales, rhonchi - Cardiovascular Rhythm: regular Heart sounds: normal: S1, S2 Abnormal Heart Sounds: no systolic murmur, no diastolic murmur, no rub, no S3 Gallop, no S4 Gallop, no click, no other - Gastrointestinal General gastrointestinal: distended, soft - Integumentary Integumentary: normal, normal turgor - Neurologic Neurologic: CNII-XII intact Results CBC & Chem 7: 12/11/16 16:25 12/12/16 10:54 Labs: Abnormal Lab Results - Last 24 Hours (Table) 12/12/16 Range/Units 10:54 Chloride 108 H (98-107) mmol/L BUN 18 H (7-17) mg/dL ALT 102 H (9-52) U/L Total Protein 5.0 L (6.3-8.2) g/dL Albumin 2.7 L (3.5-5.0) g/dL Laboratory Results WBC 5.6 k/uL (3.8-10.6) 12/11/16 16:25 RBC 2.46 m/uL (3.80-5.40) L 12/11/16 16:25 Hgb 8.1 gm/dL (11.4-16.0) L 12/11/16 16:25 Hct 23.8 % (34.0-46.0) L 12/11/16 16:25 MCV 96.7 fL (80.0-100.0) 12/11/16 16:25 MCH 33.0 pg (25.0-35.0) 12/11/16 16:25 MCHC 34.1 g/dL (31.0-37.0) 12/11/16 16:25 RDW 17.8 % (11.5-15.5) H 12/11/16 16:25 Plt Count 284 k/uL (150-450) 12/11/16 16:25 Neutrophils % 76 % 12/11/16 16:25 Lymphocytes % 18 % 12/11/16 16:25 Monocytes % 4 % 12/11/16 16:25 Eosinophils % 0 % 12/11/16 16:25 Basophils % 0 % 12/11/16 16:25 Neutrophils # 4.2 k/uL (1.3-7.7) 12/11/16 16:25 Lymphocytes # 1.0 k/uL (1.0-4.8) 12/11/16 16:25 Monocytes # 0.2 k/uL (0-1.0) 12/11/16 16:25 Eosinophils # 0.0 k/uL (0-0.7) 12/11/16 16:25 Basophils # 0.0 k/uL (0-0.2) 12/11/16 16:25 Anisocytosis Slight 12/11/16 16:25 Macrocytosis Slight 12/11/16 16:25 Sodium 137 mmol/L (137-145) 12/12/16 10:54 Potassium 3.9 mmol/L (3.5-5.1) 12/12/16 10:54 Chloride 108 mmol/L (98-107) H 12/12/16 10:54 Carbon Dioxide 22 mmol/L (22-30) 12/12/16 10:54 Anion Gap 7 mmol/L 12/12/16 10:54 BUN 18 mg/dL (7-17) H 12/12/16 10:54 Creatinine 0.60 mg/dL (0.52-1.04) 12/12/16 10:54 Est GFR (MDRD) Af Amer >60 (>60 ml/min/1.73 sqM) 12/12/16 10:54 Est GFR (MDRD) Non-Af >60 (>60 ml/min/1.73 sqM) 12/12/16 10:54 Glucose 97 mg/dL (74-99) 12/12/16 10:54 Plasma Lactic Acid Tavares 0.8 mmol/L (0.7-2.0) 12/12/16 10:54 Calcium 8.4 mg/dL (8.4-10.2) 12/12/16 10:54 Phosphorus 3.6 mg/dL (2.5-4.5) 12/11/16 16:25 Magnesium 2.1 mg/dL (1.6-2.3) 12/11/16 16:25 Total Bilirubin 1.1 mg/dL (0.2-1.3) 12/12/16 10:54 AST 30 U/L (14-36) 12/12/16 10:54 ALT 102 U/L (9-52) H 12/12/16 10:54 Alkaline Phosphatase 90 U/L (38-126) 12/12/16 10:54 Total Creatine Kinase <20 U/L (30-135) L 12/11/16 16:25 CK-MB (CK-2) <0.2 ng/mL (0.0-2.4) 12/11/16 16:25 CK-MB (CK-2) Rel Index 12/11/16 16:25 Troponin I <0.012 ng/mL (0.000-0.034) 12/11/16 16:25 Total Protein 5.0 g/dL (6.3-8.2) L 12/12/16 10:54 Albumin 2.7 g/dL (3.5-5.0) L 12/12/16 10:54 Urine Color Yellow 12/11/16 18:00 Urine Appearance Turbid (Clear) H 12/11/16 18:00 Urine pH 6.5 (5.0-8.0) 12/11/16 18:00 Ur Specific Marshall 1.030 (1.001-1.035) 12/11/16 18:00 Urine Protein 1+ (Negative) H 12/11/16 18:00 Urine Glucose (UA) Negative (Negative) 12/11/16 18:00 Urine Ketones Negative (Negative) 12/11/16 18:00 Urine Blood Moderate (Negative) H 12/11/16 18:00 Urine Nitrate Negative (Negative) 12/11/16 18:00 Urine Bilirubin Negative (Negative) 12/11/16 18:00 Urine Urobilinogen <2.0 mg/dL (<2.0) 12/11/16 18:00 Ur Leukocyte Esterase Large (Negative) H 12/11/16 18:00 Urine RBC 152 /hpf (0-5) H 12/11/16 18:00 Urine WBC 37 /hpf (0-5) H 12/11/16 18:00 Ur Squamous Epith Cells 6 /hpf (0-4) H 12/11/16 18:00 Urine Bacteria Few /hpf (None) H 12/11/16 18:00 Urine Mucus Rare /hpf (None) H 12/11/16 18:00 C. difficile (EIA) Intrp Negative (Negative) 12/12/16 00:40 Blood Type A Positive 12/11/16 16:25 Blood Type Confirm A Positive 12/11/16 17:55 Blood Type Recheck CABO Indicated 12/11/16 16:25 Antibody Screen NEGATIVE 12/11/16 16:25 Spec Expiration Date 12/14/2016232412/11/16 16:25 Thrombosis Risk Factor Assmnt - DVT/VTE Prophylaxis DVT/VTE Prophylaxis: Pharmacologic Prophylaxis ordered - Choose All That Apply Each Risk Factor Represents 3 Points: Age 75 years or older Other congenital or acquired thrombophilia - If yes, enter type in comment: No Thrombosis Risk Factor Assessment Total Risk Factor Score: 3 Thrombosis Risk Factor Assessment Level: Moderate Risk Assessment and Plan Plan: 1. Pyuria with abdominal pain, urinary frequency, constipation incidental, patient had been started on Levaquin prior to admission, patient would have cultures this time along with IV Rocephin 2. Pancolonic constipation Dulcolax 10 mg be started tomorrow 1 dose along with when necessary MiraLAX, continue on docusate sennoside repeat x-rays thereafter 2. recent syncope secondary episode without any triggering factors, seen by neurology and cardiology, patient's back at baseline she is currently monitored with telemetry EEG of the brain will be performed tomorrow. She might need an event monitor underlying arrhythmia needs to be excluded. 2. Hypertension with newly adjusted medication prior to her admission. She was slightly hypotensive with low as systolic blood pressure of 90 patient's lisinopril HCTZ was discontinued and replaced with lisinopril 10 mg daily she is to continue on Norvasc 10 mg daily 3. Acute urinary tract infection for which patient was placed on oralLevaquin. Cultures and sensitivity will be obtained,unfortunately the ER did not send urine specimen for culture and sensitivity as well as blood specimen for culture and sensitivity. 3. Chronic tobacco exposure with recent cessation September 2016, denies relapse 4. COPD exacerbation with mild bronchospasm noted on the evaluation patient's continue on nebulized albuterol and Atrovent with going to give her a few doses of Solu-Medrol 60 mg every 6 hours and taper to prednisone oral upon discharge. Patient cannot afford the Symbicort it was prescribed to her originally 5. Lung Cancer recently diagnosed in 09/[address] 10/2016 showing right lung mass, superior mediastinal uptake suspicious for metastatic disease uptake in the right tonsillar pillar and right prevertebral space suspicious for metastatic disease. She received chemotherapy 2 weeks prior to admission she follows with oncology as an outpatient 6. Hyperlipidemia on Lipitor 10 mg daily 7. GI prophylaxis and DVT prophylaxis using subcutaneous heparin and Pepcid 8. leukemoid reaction related to colony stimulation factor G-CSF treatments from chemotherapy related neutropenia 9. anemia, related to chemotherapy 10. Meningioma related findings 1.2 cm there there is the calcified lesion left paramedian vertex
[2016-12-12] MEDS: CITALOPRAM HYDROBROMIDE 10 MG TAB PO SCH (22:27)
[2016-12-13] MEDS: SYMBICORT 160-4.5 MCG INHALER INHALATION SCH ×2 (07:46→19:40)
[2016-12-13 08:37] LABS: RBC 1.93 m/uL (3.80-5.40); WBC 2.1 k/uL (3.8-10.6); WBC (Perox) 2.29
[2016-12-13 08:38] LABS: CH 30.9; CHCM 30.5; MCH 31.4 pg (25.0-35.0); MCHC 30.8 g/dL (31.0-37.0); RDW 17.6 % (11.5-15.5)
[2016-12-13 08:39] LABS: HDW 2.59
[2016-12-13 08:40] LABS: Anion Gap 8 mmol/L; Anisocytosis Slight; Basophils % (A) 0 %; Blood Urea Nitrogen 11 mg/dL (7-17); Calcium 8.5 mg/dL (8.4-10.2); Carbon Dioxide 20 mmol/L (22-30); Chloride 110 mmol/L (98-107); Eosinophils % (A) 1 %; Glucose 81 mg/dL (74-99); Hypochromasia Moderate; Lymphocytes % (A) 40 %; Macrocytosis Moderate; Monocytes % (A) 7 %; Neutrophils % (A) 49 %; Non-African American GFR(MDRD) >60 (>60 ml/min/1.73 sqM); Potassium 3.5 mmol/L (3.5-5.1); Sodium 138 mmol/L (137-145)
[2016-12-13 08:41] LABS: Luc # (Auto) 0.06; Luc % (Auto) 3; Lymphocytes # (A) 0.9 k/uL (1.0-4.8); Monocytes # (A) 0.2 k/uL (0-1.0); Neutrophils # (A) 1.1 k/uL (1.3-7.7)
[2016-12-13 08:43] LABS: HCT 19.7 % (34.0-46.0)
[2016-12-13 08:44] LABS: MCV 101.8 fL (80.0-100.0)
[2016-12-13 08:47] LABS: HGB 6.1 gm/dL (11.4-16.0)
[2016-12-13] MEDS: amLODIPine 2.5 MG TAB PO SCH ×2 (09:10→21:42)
[2016-12-13] MEDS: predniSONE 10 MG TAB PO SCH (09:11)
[2016-12-13] MEDS: CITALOPRAM HYDROBROMIDE 10 MG TAB PO SCH (09:11)
[2016-12-13] MEDS: ENOXAPARIN 40 MG/0.4 ML SYRINGE SQ SCH (09:11)
[2016-12-13] MEDS: SENNOSIDES-DOCUSATE SODIUM 1 EACH TAB PO SCH (09:12)
[2016-12-13 09:34] LABS: Anisocytosis Slight; CH 31.3; CHCM 31.7; HDW 2.64; MCH 33.5 pg (25.0-35.0); MCHC 33.7 g/dL (31.0-37.0); MCV 99.3 fL (80.0-100.0); Macrocytosis Slight; Mean Platelet Volume 9.1; RBC 1.84 m/uL (3.80-5.40); RDW 17.9 % (11.5-15.5); WBC 2.2 k/uL (3.8-10.6)
[2016-12-13 09:45] LABS: HGB 6.2 gm/dL (11.4-16.0)
[2016-12-13 09:46] LABS: HCT 18.2 % (34.0-46.0)
[2016-12-13 10:50] LABS: % Iron Saturation 35.2 % (20-50)
[2016-12-13] MEDS ORDERED: BISACODYL 5 MG TABLET.DR PO ONE (12:00)
--- NOTE | 2016-12-13 13:03 | P.PN ---
Subjective Principal diagnosis: Constipation, abdominal pain The patient is seen on rounds. She's been having significant bowel movements last night and today. She's having much less pain. No nausea or vomiting. Tolerating a diet. Currently receiving a transfusion due to anemia. Objective - Vital Signs Vital signs: Vital Signs Temp 97.1 F L 12/13/16 12:37 Pulse 78 12/13/16 12:37 Resp 16 12/13/16 12:37 BP 124/60 12/13/16 12:37 Pulse Ox 96 12/13/16 12:37 Intake & Output 12/12/16 12/13/16 12/13/16 18:59 06:59 18:59 Intake Total 200 600 0 Balance 200 600 0 Intake: Oral 200 600 Blood Product 0 Rc Pheresis As-3 Unit 0 [id number] Other: Voiding Method Bedside Commode Bedside Commode Bedside Commode Diaper Diaper Diaper Incontinent Incontinent Incontinent # Voids 2 2 # Bowel Movements 4 2 - Constitutional General appearance: Present: cooperative, no acute distress - Respiratory Respiratory: bilateral: CTA - Gastrointestinal General gastrointestinal: Present: distended (Mildly, less so than yesterday), normal bowel sounds, soft, tenderness (Epigastric without rebound) - Labs CBC & Chem 7: 12/13/16 08:58 12/13/16 07:59 Labs: Abnormal Lab Results - Last 24 Hours (Table) 12/13/16 12/13/16 12/13/16 Range/Units 07:59 07:59 08:58 WBC 2.1 L 2.2 L (3.8-10.6) k/uL RBC 1.93 L 1.84 L (3.80-5.40) m/uL Hgb 6.1 L* D 6.2 L* (11.4-16.0) gm/dL Hct 19.7 L* 18.2 L* (34.0-46.0) % MCV 101.8 H D (80.0-100.0) fL MCHC 30.8 L (31.0-37.0) g/dL RDW 17.6 H 17.9 H (11.5-15.5) % Plt Count 139 L (150-450) k/uL Neutrophils # 1.1 L (1.3-7.7) k/uL Lymphocytes # 0.9 L (1.0-4.8) k/uL Chloride 110 H (98-107) mmol/L Carbon Dioxide 20 L (22-30) mmol/L TIBC (265-497) ug/dL 12/13/16 Range/Units 08:58 WBC (3.8-10.6) k/uL RBC (3.80-5.40) m/uL Hgb (11.4-16.0) gm/dL Hct (34.0-46.0) % MCV (80.0-100.0) fL MCHC (31.0-37.0) g/dL RDW (11.5-15.5) % Plt Count (150-450) k/uL Neutrophils # (1.3-7.7) k/uL Lymphocytes # (1.0-4.8) k/uL Chloride (98-107) mmol/L Carbon Dioxide (22-30) mmol/L TIBC 193 L (265-497) ug/dL Assessment and Plan (1) Abdominal pain Status: Acute (2) Constipation Status: Acute Plan: The patient is clinically improving. On discharge I recommend continuing the Senokot and the addition of MiraLAX. She can take milk of magnesia as needed for constipation. No plans on colonoscopy.
--- NOTE | 2016-12-13 18:42 | P.PN ---
Subjective Patient is a 81 year old female with history of COPD recently diagnosed lung cancer September 2016 hypertension chronic tobacco dependence quit September 2016 recently admitted to the ER last 12/08/2016 discharge 12/09/2016 with acute episode of loss of consciousness which lasted for less than a minute . she was having dinner was found to have a witnessed episode of syncope patient was incoherent and unconscious at that time there was no tonic-clonic contractions of the upper and lower extremity there is no urinary incontinence or stool incontinence patient was sitting down when this thing happened patient cannot recollect the events occurred during the episode Patient denies any fever and chills there's no hemoptysis patient does not have any purulence in her cough. . Patient denies any coughing spells during the episode of syncope, she recently completed her chemotherapy 2 weeks ago for her lung cancer patient denies any other new changes including neurologic deficits related to the syncope during his last visit she has small amount of WBCs in her urine which is about 6, cultures were not performed at the time however he was started on Levaquin 250 mg daily and prednisone taper for COPD Tech bronchitis exacerbation , patient comes in to emergency room with abdominal pain, urinary frequency, as well as constipation. Patient hasn't had a bowel movement for approximately 7 days, no new medications from home, CAT scan in the emergency room shows prominent pancolonic constipation, no ileus she was subsequently admitted secondary to significant pyuria with a WBC count in the urine of 37, leukocyte esterase large positive, nitrite negative, lactic acidosis lactic acid of 4.2, blood count of 5.6 BUN elevated at 31 creatinine of 0.87 calcium of 10.3. MiraLAX and enemas were provided in the emergency room with some relief 3/3L pt feels fatigied no light headedness as the hemolobin dropped 2 gm rpt hgb 6, 1 init prb given, consult for Dr Ray for chemo induced bicitopenia Objective - Vital Signs Vital signs: Vital Signs Temp 97.0 F L 12/13/16 15:00 Pulse 84 12/13/16 15:00 Resp 16 12/13/16 15:00 BP 119/61 12/13/16 15:00 Pulse Ox 95 12/13/16 15:00 Intake & Output 12/12/16 12/13/16 12/13/16 18:59 06:59 18:59 Intake Total 200 600 310 Balance 200 600 310 Intake: Oral 200 600 Blood Product 310 Rc Pheresis As-3 Unit 310 [id number] Other: Voiding Method Bedside Commode Bedside Commode Bedside Commode Diaper Diaper Diaper Incontinent Incontinent Incontinent # Voids 2 2 1 # Bowel Movements 4 2 - Constitutional General appearance: Present: cooperative, no acute distress - EENT Eyes: Present: anicteric sclerae, EOMI, dentition normal ENT: Absent: hard of hearing, hearing grossly normal, NA/AT, normal oropharynx, other, pharyngeal erythema, thrush, tonsillar exudates, tonsillar swelling - Neck Neck: Present: normal ROM. Absent: lymphadenopathy, other, rigidity, stridor, thyromegaly - Respiratory Respiratory: bilateral: CTA, negative: diminished, dullness, rales, rhonchi, wheezing - Cardiovascular Rhythm: regular Heart sounds: normal: S1, S2 Abnormal Heart Sounds: Absent: systolic murmur, diastolic murmur, rub, S3 Gallop , S4 Gallop, click, other - Gastrointestinal General gastrointestinal: Present: soft Localized gastrointestinal: rebound: epigastric periumbilical, mass: LLQ - Integumentary Integumentary: Present: normal, normal turgor - Neurologic Neurologic: Present: CNII-XII intact - Musculoskeletal Musculoskeletal: Present: gait normal, strength equal bilaterally - Psychiatric Psychiatric: Present: A&O x's 3, appropriate affect, intact judgment & insight - Labs CBC & Chem 7: 12/13/16 08:58 12/13/16 07:59 Labs: Abnormal Lab Results - Last 24 Hours (Table) 12/13/16 12/13/16 12/13/16 Range/Units 07:59 07:59 08:58 WBC 2.1 L 2.2 L (3.8-10.6) k/uL RBC 1.93 L 1.84 L (3.80-5.40) m/uL Hgb 6.1 L* D 6.2 L* (11.4-16.0) gm/dL Hct 19.7 L* 18.2 L* (34.0-46.0) % MCV 101.8 H D (80.0-100.0) fL MCHC 30.8 L (31.0-37.0) g/dL RDW 17.6 H 17.9 H (11.5-15.5) % Plt Count 139 L (150-450) k/uL Neutrophils # 1.1 L (1.3-7.7) k/uL Lymphocytes # 0.9 L (1.0-4.8) k/uL Chloride 110 H (98-107) mmol/L Carbon Dioxide 20 L (22-30) mmol/L TIBC (265-497) ug/dL 12/13/16 Range/Units 08:58 WBC (3.8-10.6) k/uL RBC (3.80-5.40) m/uL Hgb (11.4-16.0) gm/dL Hct (34.0-46.0) % MCV (80.0-100.0) fL MCHC (31.0-37.0) g/dL RDW (11.5-15.5) % Plt Count (150-450) k/uL Neutrophils # (1.3-7.7) k/uL Lymphocytes # (1.0-4.8) k/uL Chloride (98-107) mmol/L Carbon Dioxide (22-30) mmol/L TIBC 193 L (265-497) ug/dL Assessment and Plan Plan: 1. Pyuria with abdominal pain, urinary frequency, constipation incidental, patient had been started on Levaquin prior to admission, patient would have cultures this time along with IV Rocephin 2. Pancolonic constipation Dulcolax 10 mg be started tomorrow 1 dose along with when necessary MiraLAX, continue on docusate sennoside repeat x-rays thereafter 2. recent syncope secondary episode without any triggering factors, seen by neurology and cardiology, patient's back at baseline she is currently monitored with telemetry EEG of the brain will be performed tomorrow. She might need an event monitor underlying arrhythmia needs to be excluded. 2. Hypertension with newly adjusted medication prior to her admission. She was slightly hypotensive with low as systolic blood pressure of 90 patient's lisinopril HCTZ was discontinued and replaced with lisinopril 10 mg daily she is to continue on Norvasc 10 mg daily 3. Acute urinary tract infection for which patient was placed o on Iv rocephine. Cultures and sensitivity will be obtained,unfortunately the ER did not send urine specimen for culture and sensitivity as well as blood specimen for culture and sensitivity during admision. cultures sent 3. Chronic tobacco exposure with recent cessation September 2016, denies relapse 4. COPD exacerbation with mild bronchospasm noted on the evaluation patient's continue on nebulized albuterol and Atrovent with going to give her a few doses of Solu-Medrol 60 mg every 6 hours and taper to prednisone oral upon discharge. Patient cannot afford the Symbicort it was prescribed to her originally 5. Lung Cancer recently diagnosed in 09/[address] 10/2016 showing right lung mass, superior mediastinal uptake suspicious for metastatic disease uptake in the right tonsillar pillar and right prevertebral space suspicious for metastatic disease. She received chemotherapy 2 weeks prior to admission she follows with oncology as an outpatient 6. Hyperlipidemia on Lipitor 10 mg daily 7. GI prophylaxis and DVT prophylaxis using subcutaneous heparin and Pepcid 8. leukemoid reaction related to colony stimulation factor G-CSF treatments from chemotherapy related neutropenia 9. anemia, related to chemotherapy 10. Meningioma related findings 1.2 cm there there is the calcified lesion left paramedian vertex\ 11 bicitopenia, critical low hemoglobin, bm sppression most likely from chemo, no gross blood loses noted, 1 unit prbc given, consult with dr ray for neutropenia nad anemia
[2016-12-14] MEDS: SYMBICORT 160-4.5 MCG INHALER INHALATION SCH ×2 (08:41→18:55)
[2016-12-14 08:56] LABS: Anisocytosis Slight; Basophils % (A) 0 %; CH 31.4; CHCM 31.7; Eosinophils % (A) 1 %; HCT 20.6 % (34.0-46.0); HDW 3.15; Hypochromasia Slight; Luc # (Auto) 0.11; Luc % (Auto) 4; Lymphocytes # (A) 1.1 k/uL (1.0-4.8); Lymphocytes % (A) 46 %; MCH 32.3 pg (25.0-35.0); MCHC 32.3 g/dL (31.0-37.0); Macrocytosis Slight; Mean Platelet Volume 8.9; Monocytes # (A) 0.2 k/uL (0-1.0); Monocytes % (A) 8 %; Neutrophils % (A) 42 %; RBC 2.06 m/uL (3.80-5.40); RDW 18.2 % (11.5-15.5); WBC 2.5 k/uL (3.8-10.6); WBC (Perox) 2.61
[2016-12-14 09:03] LABS: HGB 6.7 gm/dL (11.4-16.0)
[2016-12-14] MEDS: SENNOSIDES-DOCUSATE SODIUM 1 EACH TAB PO SCH (09:34)
[2016-12-14] MEDS: CITALOPRAM HYDROBROMIDE 10 MG TAB PO SCH (09:36)
[2016-12-14] MEDS: predniSONE 10 MG TAB PO SCH (09:36)
[2016-12-14] MEDS: amLODIPine 2.5 MG TAB PO SCH ×2 (09:36→20:27)
[2016-12-14] MEDS: ENOXAPARIN 40 MG/0.4 ML SYRINGE SQ SCH (09:36)
[2016-12-14] MEDS ORDERED: FAMOTIDINE 20 MG TAB PO ONE (11:48)
[2016-12-14] MEDS ORDERED: FUROSEMIDE 10 MG/ML 2 ML VIAL IV ONE (11:48)
[2016-12-14] MEDS ORDERED: diphenhydrAMINE 50 MG CAP PO ONE (11:48)
--- NOTE | 2016-12-14 12:55 | P.PN ---
Subjective Principal diagnosis: Abdominal pain, UTI/sepsis, severe constipation, pancytopenia, severe anemia, lung cancer, COPD excessive patient. Patient is a 81 year old female with history of COPD recently diagnosed lung cancer September 2016 hypertension chronic tobacco dependence quit September 2016 recently admitted to the ER last 12/08/2016 discharge 12/09/2016 with acute episode of loss of consciousness which lasted for less than a minute . she was having dinner was found to have a witnessed episode of syncope patient was incoherent and unconscious at that time there was no tonic-clonic contractions of the upper and lower extremity there is no urinary incontinence or stool incontinence patient was sitting down when this thing happened patient cannot recollect the events occurred during the episode Patient denies any fever and chills there's no hemoptysis patient does not have any purulence in her cough. . Patient denies any coughing spells during the episode of syncope, she recently completed her chemotherapy 2 weeks ago for her lung cancer patient denies any other new changes including neurologic deficits related to the syncope during his last visit she has small amount of WBCs in her urine which is about 6, cultures were not performed at the time however he was started on Levaquin 250 mg daily and prednisone taper for COPD Tech bronchitis exacerbation , patient comes in to emergency room with abdominal pain, urinary frequency, as well as constipation. Patient hasn't had a bowel movement for approximately 7 days, no new medications from home, CAT scan in the emergency room shows prominent pancolonic constipation, no ileus she was subsequently admitted secondary to significant pyuria with a WBC count in the urine of 37, leukocyte esterase large positive, nitrite negative, lactic acidosis lactic acid of 4.2, blood count of 5.6 BUN elevated at 31 creatinine of 0.87 calcium of 10.3. MiraLAX and enemas were provided in the emergency room with some relief 3/3L pt feels fatigied no light headedness as the hemolobin dropped 2 gm rpt hgb 6, 1 init prb given, consult for Dr Ray for chemo induced bicitopenia 12/14/2016: Patient is feeling still fatigued and tired hemoglobin had dropped down quite bed we will transfuse 2 units of blood today continue to see hematology the patient is feeling better by tomorrow might be going home. Objective - Vital Signs Vital signs: Vital Signs Temp 97 F L 12/14/16 07:00 Pulse 71 12/14/16 07:00 Resp 16 12/14/16 07:00 BP 116/64 12/14/16 07:00 Pulse Ox 96 12/14/16 08:43 Intake & Output 12/13/16 12/14/16 12/14/16 18:59 06:59 18:59 Intake Total 310 400 Balance 310 400 Intake: Oral 400 Blood Product 310 Rc Pheresis As-3 Unit 310 [id number] Other: Voiding Method Bedside Commode Diaper Incontinent # Voids 1 2 - Constitutional General appearance: Present: cooperative, disheveled, mild distress, thin. Absent: average body habitus, morbidly obese, no acute distress, obese, severe distress - EENT Eyes: Present: poor dentition, normal appearance. Absent: abnormal pupil, anicteric sclerae, disc margins sharp, edentulous, EOMI, PERRLA, fundus normal, photophobia, dentition normal, ptosis, scleral icterus ENT: Present: pharyngeal erythema. Absent: hard of hearing, hearing grossly normal, NA/AT, normal oropharynx, other, thrush, tonsillar exudates, tonsillar swelling Ears: bilateral: normal, bulging - Neck Neck: Present: normal ROM. Absent: lymphadenopathy, other, rigidity, stridor, thyromegaly Carotids: bilateral: upstroke normal, upstroke delayed - Respiratory Respiratory: bilateral: diminished, dullness, rales, rhonchi, wheezing - Cardiovascular Rhythm: regular Heart sounds: normal: S1, S2 Abnormal Heart Sounds: Present: systolic murmur, S3 Gallop - Gastrointestinal General gastrointestinal: Present: distended, normal bowel sounds, soft. Absent : absent bowel sounds, decreased bowel sounds, hepatomegaly, hyperactive bowel sounds, organomegaly, rigid, scaphoid, splenomegaly, tenderness, umbilical hernia, ventral hernia - Integumentary Integumentary: Present: flushed, normal, pale, rash. Absent: calor, cellulitis , cyanotic, decreased turgor, jaundiced, normal turgor, ulcer - Neurologic Neurologic: Present: CNII-XII intact. Absent: focal deficits - Musculoskeletal Musculoskeletal: Present: generalized weakness, right sided weakness. Absent: gait normal, strength equal bilaterally, left sided weakness - Psychiatric Psychiatric: Present: A&O x's 3, appropriate affect. Absent: intact judgment & insight - Labs CBC & Chem 7: 12/14/16 08:36 12/13/16 07:59 Labs: Abnormal Lab Results - Last 24 Hours (Table) 12/14/16 Range/Units 08:36 WBC 2.5 L (3.8-10.6) k/uL RBC 2.06 L (3.80-5.40) m/uL Hgb 6.7 L* (11.4-16.0) gm/dL Hct 20.6 L (34.0-46.0) % RDW 18.2 H (11.5-15.5) % Plt Count 108 L (150-450) k/uL Neutrophils # 1.0 L (1.3-7.7) k/uL Assessment and Plan Plan: 1. Abdominal pain, urinary frequency and constipation: patient had been started on Levaquin prior to admission, patient would have cultures this time along with IV Rocephin. Fortunately urine culture came back negative patient does not need to be on longer term urosepsis a unit tract infection management. For constipation continue medication patient is doing well. 2. Pancolonic constipation Dulcolax 10 mg be started tomorrow 1 dose along with when necessary MiraLAX, continue on docusate sennoside repeat x-rays thereafter. Has been better so far with bowel movement happening regularly. 3 pancytopenia: Post chemo, patient is anemic with the blood count today quite bit low will require 2 units of blood transfusion continued see oncology if hemoglobin is stable tomorrow probably patient will feel better I will be able to go home. 4. recent syncope secondary episode without any triggering factors, seen by neurology and cardiology, patient's back at baseline she is currently monitored with telemetry EEG of the brain will be performed tomorrow. She might need an event monitor underlying arrhythmia needs to be excluded. 5. Hypertension with newly adjusted medication prior to her admission. She was slightly hypotensive with low as systolic blood pressure of 90 patient's lisinopril HCTZ was discontinued and replaced with lisinopril 10 mg daily she is to continue on Norvasc 10 mg daily 6. COPD exacerbation with mild bronchospasm noted on the evaluation patient's continue on nebulized albuterol and Atrovent with going to give her a few doses of Solu-Medrol 60 mg every 6 hours and taper to prednisone oral upon discharge. Patient cannot afford the Symbicort it was prescribed to her originally 7. Lung Cancer recently diagnosed in 09/[address] 10/2016 showing right lung mass, superior mediastinal uptake suspicious for metastatic disease uptake in the right tonsillar pillar and right prevertebral space suspicious for metastatic disease. She received chemotherapy 2 weeks prior to admission she follows with oncology as an outpatient 8. Hyperlipidemia on Lipitor 10 mg daily 9. GI prophylaxis and DVT prophylaxis using subcutaneous heparin and Pepcid 10. leukemoid reaction related to colony stimulation factor G-CSF treatments from chemotherapy related neutropenia 11. anemia, related to chemotherapy 12. Meningioma related findings 1.2 cm there there is the calcified lesion left paramedian vertex. 13 discharge planning: Patient might be able to go home tomorrow if she stable.
[2016-12-15 00:09] VITALS: RESP 18
[2016-12-15 07:16] VITALS: BP 156/76; PULSE 60; TEMP 97.6
[2016-12-15] MEDS: SENNOSIDES-DOCUSATE SODIUM 1 EACH TAB PO SCH (07:52)
[2016-12-15] MEDS: ENOXAPARIN 40 MG/0.4 ML SYRINGE SQ SCH (07:52)
[2016-12-15] MEDS: predniSONE 10 MG TAB PO SCH (07:52)
[2016-12-15] MEDS: CITALOPRAM HYDROBROMIDE 10 MG TAB PO SCH (07:52)
[2016-12-15] MEDS: amLODIPine 2.5 MG TAB PO SCH (07:52)
[2016-12-15 08:22] LABS: ALT 64 U/L (9-52); AST 19 U/L (14-36); Alkaline Phosphatase 87 U/L (38-126); Anion Gap 10 mmol/L; Blood Urea Nitrogen 10 mg/dL (7-17); Calcium 8.8 mg/dL (8.4-10.2); Carbon Dioxide 21 mmol/L (22-30); Chloride 110 mmol/L (98-107); Glucose 83 mg/dL (74-99); Non-African American GFR(MDRD) >60 (>60 ml/min/1.73 sqM); Potassium 3.1 mmol/L (3.5-5.1); Sodium 141 mmol/L (137-145); Total Bilirubin 0.4 mg/dL (0.2-1.3); Total Protein 5.4 g/dL (6.3-8.2)
[2016-12-15 08:23] LABS: Anisocytosis Slight; Basophils % (A) 0 %; CH 30.8; CHCM 33.4; Eosinophils % (A) 0 %; HCT 29.1 % (34.0-46.0); HDW 3.15; Luc # (Auto) 0.15; Luc % (Auto) 3; Lymphocytes # (A) 1.8 k/uL (1.0-4.8); Lymphocytes % (A) 40 %; MCH 30.4 pg (25.0-35.0); MCHC 32.7 g/dL (31.0-37.0); Macrocytosis Slight; Mean Platelet Volume 8.5; Monocytes # (A) 0.4 k/uL (0-1.0); Monocytes % (A) 8 %; Neutrophils # (A) 2.2 k/uL (1.3-7.7); Neutrophils % (A) 48 %; RBC 3.13 m/uL (3.80-5.40); RDW 18.9 % (11.5-15.5); WBC 4.6 k/uL (3.8-10.6); WBC (Perox) 4.87
[2016-12-15] MEDS: SYMBICORT 160-4.5 MCG INHALER INHALATION SCH (08:30)
[2016-12-15 08:31] LABS: HGB 9.5 gm/dL (11.4-16.0); MCV 92.9 fL (80.0-100.0)
[2016-12-15 08:44] LABS: Manual Review Performed
[2016-12-15 08:45] LABS: Polychromasia Present
[2016-12-15] MEDS ORDERED: POTASSIUM CHLORIDE ER 20 MEQ TAB.ER PO STA (11:55)
--- NOTE | 2016-12-15 13:12 | P.DS ---
Providers Date of admission: 12/11/16 20:06 Attending physician: Angelia Hernandez Consults: 12/13/16 14:59 Consult Physician Routine Consulting Provider: Steven Ray Consult Reason/Comments: bicitopenia on chemo Do you want consulting provider notified?: Yes [facility] Course: Principal diagnosis: Abdominal pain, UTI/sepsis, severe constipation, pancytopenia, severe anemia, lung cancer, COPD excessive patient. Patient is a 81 year old female with history of COPD recently diagnosed lung cancer September 2016 hypertension chronic tobacco dependence quit September 2016 recently admitted to the ER last 12/08/2016 discharge 12/09/2016 with acute episode of loss of consciousness which lasted for less than a minute . she was having dinner was found to have a witnessed episode of syncope patient was incoherent and unconscious at that time there was no tonic-clonic contractions of the upper and lower extremity there is no urinary incontinence or stool incontinence patient was sitting down when this thing happened patient cannot recollect the events occurred during the episode Patient denies any fever and chills there's no hemoptysis patient does not have any purulence in her cough. . Patient denies any coughing spells during the episode of syncope, she recently completed her chemotherapy 2 weeks ago for her lung cancer patient denies any other new changes including neurologic deficits related to the syncope during his last visit she has small amount of WBCs in her urine which is about 6, cultures were not performed at the time however he was started on Levaquin 250 mg daily and prednisone taper for COPD Tech bronchitis exacerbation , patient comes in to emergency room with abdominal pain, urinary frequency, as well as constipation. Patient hasn't had a bowel movement for approximately 7 days, no new medications from home, CAT scan in the emergency room shows prominent pancolonic constipation, no ileus she was subsequently admitted secondary to significant pyuria with a WBC count in the urine of 37, leukocyte esterase large positive, nitrite negative, lactic acidosis lactic acid of 4.2, blood count of 5.6 BUN elevated at 31 creatinine of 0.87 calcium of 10.3. MiraLAX and enemas were provided in the emergency room with some relief 3/3L pt feels fatigied no light headedness as the hemolobin dropped 2 gm rpt hgb 6, 1 init prb given, consult for Dr Ray for chemo induced bicitopenia 12/14/2016: Patient is feeling still fatigued and tired hemoglobin had dropped down quite bed we will transfuse 2 units of blood today continue to see hematology the patient is feeling better by tomorrow might be going home. 12/15/2016: Patient is feeling much better after 2 unit of red packed cell transfusion hemoglobin is up to 9.5 patient is feeling much better, potassium is slightly bit low and potassium supplement was giving and prescribed. Patient is stronger she wants to go home. Despite her culture be negative patient was on Levaquin 250 mg daily before coming to the hospital will continue her current course until his done as consistent with UTI was treated treatment was not completed at the time was tested and the culture was done in the hospital. 1. Abdominal pain, urinary frequency and constipation: patient had been started on Levaquin prior to admission, patient would have cultures this time along with IV Rocephin. Fortunately urine culture came back negative patient does not need to be on longer term urosepsis a unit tract infection management. For constipation continue medication patient is doing well. 2. Pancolonic constipation Dulcolax 10 mg be started tomorrow 1 dose along with when necessary MiraLAX, continue on docusate sennoside repeat x-rays thereafter. Has been better so far with bowel movement happening regularly. 3 pancytopenia: Post chemo, patient is anemic with the blood count today quite bit low will require 2 units of blood transfusion continued see oncology if hemoglobin is stable tomorrow probably patient will feel better I will be able to go home. 4. recent syncope secondary episode without any triggering factors, seen by neurology and cardiology, patient's back at baseline she is currently monitored with telemetry EEG of the brain will be performed tomorrow. She might need an event monitor underlying arrhythmia needs to be excluded. 5. Hypertension with newly adjusted medication prior to her admission. She was slightly hypotensive with low as systolic blood pressure of 90 patient's lisinopril HCTZ was discontinued and replaced with lisinopril 10 mg daily she is to continue on Norvasc 10 mg daily 6. COPD exacerbation with mild bronchospasm noted on the evaluation patient's continue on nebulized albuterol and Atrovent with going to give her a few doses of Solu-Medrol 60 mg every 6 hours and taper to prednisone oral upon discharge. Patient cannot afford the Symbicort it was prescribed to her originally 7. Lung Cancer recently diagnosed in 09/[address] 10/2016 showing right lung mass, superior mediastinal uptake suspicious for metastatic disease uptake in the right tonsillar pillar and right prevertebral space suspicious for metastatic disease. She received chemotherapy 2 weeks prior to admission she follows with oncology as an outpatient 8. Hyperlipidemia on Lipitor 10 mg daily 9. GI prophylaxis and DVT prophylaxis using subcutaneous heparin and Pepcid 10. leukemoid reaction related to colony stimulation factor G-CSF treatments from chemotherapy related neutropenia 11. anemia, related to chemotherapy 12. Meningioma related findings 1.2 cm there there is the calcified lesion left paramedian vertex. Patient is feeling much better no further constipation, hypokalemia will be corrected with supplement. Anemia was corrected with blood transfusion hemoglobin is up to 9.5. Patient will continue her current treatment for UTI to complete 5 more days of Levaquin 250 which patient has at home from before coming to the hospital. She stable to go home today and she will be seen Dr. Washington and Dr. Smith as an outpatient next few days. Patient Condition at Discharge: Good Plan - Discharge Summary New Discharge Prescriptions: Potassium Chloride ER [K-Dur 20] 40 meq PO ONCE #10 tab.[email or web address].prt Discharge Medication List Citalopram Hydrobromide [CeleXA] 10 mg PO DAILY 12/07/16 [History] Polyethylene Glycol 3350 [Miralax] 17 gm PO Q3D PRN #30 packet 12/09/16 [Rx] amLODIPine [Norvasc] 2.5 mg PO BID #0 12/09/16 [Rx] Albuterol Sulfate [Proventil Hfa] 2 puff INHALATION RT-Q6H PRN 12/11/16 [History ] Budesonide-Formot 160-4.5 Mcg [Symbicort 160-4.5 Mcg Inhaler] 2 puff INHALATION RT-BID 12/11/16 [History] Levofloxacin [Levaquin] 250 mg PO DAILY 12/11/16 [History] Sennosides-Docusate Sodium [Senokot-S] 1 tab PO DAILY 12/11/16 [History] predniSONE See Taper PO DAILY 12/11/16 [History] Magnesium Hydroxide [Milk of Magnesia Concentrate] 2,400 mg PO DAILY PRN #0 ml 12/15/16 [Rx] Potassium Chloride ER [K-Dur 20] 40 meq PO ONCE #10 tab.er.prt 12/15/16 [Rx] Follow up Appointment(s)/Referral(s): Saul Washington MD [Primary Care Provider] - 1-2 days [facility] Visiting Nurse, [NON-STAFF] - Patient Instructions/Handouts: Constipation (ED), Abdominal Pain (ED)
--- NOTE | 2016-12-15 22:46 | P.CONS ---
History of Present Illness - Reason for Consult Consult date: 12/13/16 Lung cancer, on chemotherapy. Pancytopenia - History of Present Illness The patient is a 81-year-old lady, who had initially presented in 09/27 to the ER with complains of abdominal pain, nausea and vomiting. She had had presentations this before, with improvement post treatment of constipation. X-rays during this admission revealed possibility of a small nodule in the base of the lung. He therefore underwent a CT scan of the chest which revealed a larger nodule in the right upper lobe, between 2-3 centimeters in size. 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 She was seen in the office, and a PET scan as well as CT brain was recommended. These tests were delayed as the patient rescheduled them several times. Ultimately on PET scan, she was found to have evidence of metastatic disease. She was then started on chemotherapy with MIXER WHIPPED TOPPING-16 and carboplatin every 3 weeks. She is status post 2 cycles with the second cycle being given from 12/03-12/05/16. She was hospitalized on 12/06/16 with an acute syncopal episode, that was attributes to an UTI and dehydration. She was seen in the office for apractitioner visit on 12/11/16. She was complaining of significant nausea and decreased appetite. She had not had a bowel movement for a week and had significant abdominal discomfort and distention. She was sent to the emergency room, and was admitted for further management. She did improve with treatment of constipation and is now actually having multiple bowel movements a day. During this admission, her blood counts did drop steadily and were down to 6.2 today. White count was 2.2. Platelets were in the 130 range. Absolute neutrophil count however was greater than 1000. Consult was therefore placed for further evaluation and recommendations. Patient denies any fever, or mouth sores. With resolution of the constipation , abdominal distention, pain as well as nausea have all improved Review of Systems Constitutional: Reports poor appetite, Reports weakness Eyes: denies blurred vision, denies pain Ears: deny: decreased hearing, ear discharge, earache, tinnitus Ears, nose, mouth and throat: Denies headache, Denies sore throat Cardiovascular: Reports shortness of breath Respiratory: Reports dyspnea Gastrointestinal: Reports abdominal pain, Reports constipation, Reports nausea, Reports vomiting Genitourinary: Denies dysuria, Denies hematuria Menstruation: Reports postmenopausal Musculoskeletal: Reports muscle weakness Integumentary: Denies pruritus, Denies rash Neurological: Reports weakness Psychiatric: Denies anxiety, Denies depression Endocrine: Reports weight change Hematologic/Lymphatic: Reports as per HPI Past Medical History Past Medical History: Cancer, COPD, Hyperlipidemia, Hypertension, Osteoarthritis (OA), Respiratory Disorder, Syncope Additional Past Medical History / Comment(s): Lung Cancer diagnosis in September 2016, currently receiving chemotherapy. History of Any Multi-Drug Resistant Organisms: None Reported Past Surgical History: Appendectomy, Hysterectomy Additional Past Surgical History / Comment(s): colostomy reversal 2008, cataracts Past Anesthesia/Blood Transfusion Reactions: No Reported Reaction Past Psychological History: Depression Smoking Status: Former smoker Past Alcohol Use History: None Reported Additional Past Alcohol Use History / Comment(s): Used to drink a few drinks per day. Since CA diagnosis, has only recently had a couple drinks in the past week. Quit smoking in September 2016. Past Drug Use History: None Reported - Past Family History Mother Family Medical History: Cancer Additional Family Medical History / Comment(s): Mother had lung CA diagnosed at 90 years old. Brother(s) Family Medical History: Diabetes Mellitus Daughter(s) Family Medical History: Cancer Additional Family Medical History / Comment(s): Daughter had breast CA in 2006 Medications and Allergies Home Medications Medication Instructions Recorded Confirmed Type Citalopram Hydrobromide [CeleXA] 10 mg PO DAILY 12/07/16 12/11/16 History Albuterol Sulfate [Proventil Hfa] 2 puff INHALATION RT-Q6H PRN 12/11/16 History Budesonide-Formot 160-4.5 Mcg 2 puff INHALATION RT-BID 12/11/16 12/11/16 History [Symbicort 160-4.5 Mcg Inhaler] Levofloxacin [Levaquin] 250 mg PO DAILY 12/11/16 12/11/16 History Sennosides-Docusate Sodium 1 tab PO DAILY 12/11/16 12/11/16 History [Senokot-S] predniSONE See Taper PO DAILY 12/11/16 12/11/16 History Allergies Allergy/AdvReac Type Severity Reaction Status Date / Time No Known Allergies Allergy Verified 12/11/16 16:32 Physical Exam Vitals: Vital Signs Temp Pulse Pulse Resp BP BP Pulse Ox 12/13/16 15:00 97.0 F L 84 16 119/61 95 12/13/16 14:30 97.6 F 84 18 119/61 96 12/13/16 14:13 97.4 F L 85 18 112/63 95 12/13/16 13:07 98 F 77 16 121/61 97 12/13/16 12:37 97.1 F L 78 16 124/60 96 12/13/16 12:27 97.1 F L 80 17 120/57 12/13/16 12:24 97.1 F L 83 16 124/59 96 12/13/16 07:00 97.4 F L 97 16 105/51 97 12/12/16 23:00 98.1 F 95 20 93/59 95 12/12/16 18:00 99/53 Intake and Output 12/13/16 12/13/16 12/13/16 06:59 14:59 22:59 Intake Total 100 310 Balance 100 310 Intake: Oral 100 Blood Product 310 Rc Pheresis As-3 Unit 310 [id number] Other: Voiding Method Bedside Commode Bedside Commode Bedside Commode Diaper Diaper Diaper Incontinent Incontinent Incontinent # Voids 2 1 # Bowel Movements 2 - Constitutional General appearance: no acute distress - EENT Eyes: EOMI, PERRLA ENT: hearing grossly normal, normal oropharynx - Neck Neck: no lymphadenopathy - Respiratory Respiratory: bilateral: CTA - Cardiovascular Rhythm: regular Heart sounds: normal: S1, S2 - Gastrointestinal General gastrointestinal: normal bowel sounds, soft - Integumentary Integumentary: normal - Neurologic Neurologic: CNII-XII intact - Musculoskeletal Musculoskeletal: generalized weakness, strength equal bilaterally - Psychiatric Psychiatric: A&O x's 3, appropriate affect Results CBC & Chem 7: 12/15/16 07:48 12/15/16 07:48 Labs: Abnormal Lab Results - Last 24 Hours (Table) 12/13/16 12/13/16 12/13/16 Range/Units 07:59 07:59 08:58 WBC 2.1 L 2.2 L (3.8-10.6) k/uL RBC 1.93 L 1.84 L (3.80-5.40) m/uL Hgb 6.1 L* D 6.2 L* (11.4-16.0) gm/dL Hct 19.7 L* 18.2 L* (34.0-46.0) % MCV 101.8 H D (80.0-100.0) fL MCHC 30.8 L (31.0-37.0) g/dL RDW 17.6 H 17.9 H (11.5-15.5) % Plt Count 139 L (150-450) k/uL Neutrophils # 1.1 L (1.3-7.7) k/uL Lymphocytes # 0.9 L (1.0-4.8) k/uL Chloride 110 H (98-107) mmol/L Carbon Dioxide 20 L (22-30) mmol/L TIBC (265-497) ug/dL 12/13/16 Range/Units 08:58 WBC (3.8-10.6) k/uL RBC (3.80-5.40) m/uL Hgb (11.4-16.0) gm/dL Hct (34.0-46.0) % MCV (80.0-100.0) fL MCHC (31.0-37.0) g/dL RDW (11.5-15.5) % Plt Count (150-450) k/uL Neutrophils # (1.3-7.7) k/uL Lymphocytes # (1.0-4.8) k/uL Chloride (98-107) mmol/L Carbon Dioxide (22-30) mmol/L TIBC 193 L (265-497) ug/dL Abdominal x-ray: report reviewed CT scan - abdomen: report reviewed CT scan - pelvis: report reviewed Assessment and Plan (1) Pancytopenia due to antineoplastic chemotherapy Narrative/Plan: The pt is currently at her kandy from her chemotherapy. WBC /ANC as well as plt are in a safe range and do not require intervention. Her Hgb has declined to < 7. Fortunately, she is relatively asymptomatic. Agree with transfusion to keep HGb > 7 Status: Acute (2) Abdominal pain Narrative/Plan: This was due to constipation, and is much improved with resumption of BMs. This has been a chronic issue. She will be continued on a bowel regimen as an outpt with ongoing evaluation. Status: Acute (3) Small cell lung cancer Narrative/Plan: She is s/p 2 cycles of VP16 and Carbo. She has a f/u in the coming week. Depending on her clinical status, we will decide re continuing on schedule or delaying Status: Acute
== END 2016-12-15 15:42 | disposition home health service (06) | DRG 812 ==
LOC: EC 14:54 → 4MS4W 20:06
PROVIDERS: ADMIT Family Medicine; ATTEND Family Medicine
PROC: 30233N1 Transfusion of Nonautologous Red Blood Cells into Peripheral Vein, Percutaneous Approach (ICD-10-PCS; principal; 2016-12-13)
DX: D64.81 Anemia due to antineoplastic chemotherapy (principal); E87.2 Acidosis; C34.90 Malignant neoplasm of unspecified part of unspecified bronchus or lung; I95.9 Hypotension, unspecified; J44.9 Chronic obstructive pulmonary disease, unspecified; E86.0 Dehydration; D61.810 Antineoplastic chemotherapy induced pancytopenia; F32.9 Major depressive disorder, single episode, unspecified; I10 Essential (primary) hypertension; D32.9 Benign neoplasm of meninges, unspecified; D72.823 Leukemoid reaction; E78.5 Hyperlipidemia, unspecified; K59.00 Constipation, unspecified; T45.1X5A Adverse effect of antineoplastic and immunosuppressive drugs, initial encounter; M19.90 Unspecified osteoarthritis, unspecified site; K57.90 Diverticulosis of intestine, part unspecified, without perforation or abscess without bleeding; R32 Unspecified urinary incontinence; Z79.899 Other long term (current) drug therapy; Z87.891 Personal history of nicotine dependence
CPT/HCPCS: 36415; 74022; 74177; 80048; 80053; 81001; 82272; 82550; 82553; 83540; 83550; 83605; 83735; 84100; 84443; 84484; 85025; 85027; 86850; 86900; 86901; 86920; 87086; 87324; 93005; 94640; 94760; 96361; 96365; 96372; 96375; 99285

== ENCOUNTER → 2019-12-17 | Outpatient (CLI) | payer MEDICARE, BC ==
--- NOTE | 2019-12-21 06:45 | PE ---
EXAMINATION TYPE: PET CT fusion skull to thigh DATE OF EXAM: 12/17/2019 COMPARISON: Prior CT abdomen and pelvis December 11, [address] November 02, 2016. HISTORY: Lung cancer progress study. Diagnosed on biopsy right upper lobe September 2016 per patient. Completed chemotherapy 2017. Recent increasing size nodule right lung per oncology note. TECHNIQUE: Following the intravenous administration of 11.77 mCi of F-18 FDG, whole body images are performed from the skull base to the midthigh. Images are reviewed on the computer in the coronal, a xial, and sagittal planes. Reconstructed rotating images are created on independent workstation and reviewed on the computer. A noncontrast CT is performed in conjunction with the PET scan. SCAN: Subsequent Scan FINDINGS: SKULL BASE AND NECK: No new areas of suspicious hypermetabolic uptake. CHEST, MEDIASTINUM, AND HILAR REGION: Corresponding to patient's history there is subpleural nodule r ight mid lung axial image 85 measuring 2.4 x 1.2 cm with hypermetabolic uptake, max SUV is 6.68. Ther e is background mild to moderate emphysematous change with peripheral scarring throughout the right u pper lobe and scattered areas of scarring throughout the right lower lung. There are tiny bilateral p leural effusions and/or pleural thickening with moderate bibasilar linear scarring and/or atelectasis . There is stable 7 mm right basilar nodule axial image [address] that is ametabolic presumed benign. No new hypermetabolic adenopathy. ABDOMEN AND PELVIS: Normal excretion is seen. Focus of hypermetabolic uptake right colon axial image 167 has max SUV of 6.56. Focus of abnormal hypermetabolic uptake near level of cervix axial image 228 has max SUV of 8.28. This could reflect urine leak as there is additionally noted inferior to this o utside skin surface. Additional focus of abnormal hypermetabolic uptake inferior axial image 248 appe ars external to patient outside the right labia for reference. No new adrenal masses or additional areas of suspicious hypermetabolic uptake. OSSEOUS STRUCTURES: No new areas of abnormal hypermetabolic uptake. OTHER CT: Moderate to severe calcified plaque bilateral carotid bulb level. Enlarged main pulmonary artery at 3.9 cm axial image 83, CT finding consistent with underlying pulmon stephen artery hypertension. There is moderate coronary artery calcification which is noted marker for un derlying coronary artery disease. Mild cardiomegaly. Scattered diverticula throughout the colon. Surgical sutures sigmoid rectal colon axis image 203 are noted. Uterus is surgically absent. Scar tissue in the anterior lower abdominal wall midline. Multilevel spurring in the thoracolumbar spine. Mild/moderate calcified plaque of the aorta extends i nto branch vessels. IMPRESSION: Recurrent active neoplasm right midlung laterally at site of prior active tumor 2017 is c onfirmed. Advise colonoscopy follow-up for hypermetabolic subcentimeter focus right colon. Advise pel mark physical exam correlation and possible Pap smear for focus of uptake at level of the cervix thoug h favor urinary contamination. No metastatic disease is evident. Degree of active involvement less pr ominent from 2017 PET.
== END | disposition home or self-care (01) ==
LOC: RADPETMAIN 15:17
PROVIDERS: ATTEND Internal Medicine Hematology & Oncology
DX: C34.31 Malignant neoplasm of lower lobe, right bronchus or lung (principal); R93.3 Abnormal findings on diagnostic imaging of other parts of digestive tract
CPT/HCPCS: 78815; A9552

== ENCOUNTER 2020-01-20 17:49 | Observation (INO) | payer MEDICARE, BC ==
--- NOTE | 2020-01-20 18:23 | ED ---
General Adult HPI - General Chief complaint: Fall Stated complaint: FAll/ETOH Time Seen by Provider: 01/20/20 17:54 Source: patient, EMS Mode of arrival: EMS Limitations: no limitations - History of Present Illness Initial comments: Dictation was produced using [employer] dictation software. please excuse any grammatical, word or spelling errors. This patient was cared for during a federal and state declared state of emergency secondary to Covid 19 Chief Complaint: 84-year-old female past medical history of alcoholism presents with fall. History of Present Illness: An 84-year-old female she has past medical history of alcoholism, COPD, dyslipidemia. She is brought in by EMS after being found in the parking lot. According to patient she states that she doesn't really recall the events prior to this. States that the last thing she remembers was being at a bar earlier today. Patient is a poor historian. She rapidly states she does not know what happened. She was found with trauma to the face. The ROS documented in this emergency department record has been reviewed and confirmed by me. Those systems with pertinent positive or negative responses have been documented in the HPI. All other systems are other negative and/or noncontributory. PHYSICAL EXAM: General Impression: Alert and oriented x3, not in acute distress HEENT: extra-ocular movements intact, pupils equal and reactive to light bilaterally, mucous membranes moist., Dried blood at the naris. No septal hematoma, Cardiovascular: Heart regular rate and rhythm, S1&S2 audible, no murmurs, rubs or gallops Chest: Able to complete full sentences, no retractions, no tachypnea Abdomen: Bowel sounds present, abdomen soft, non-tender, non-distended, no or ganomegaly Musculoskeletal: Pulses present and equal in all extremities, no peripheral edema Motor: no focal deficits noted Neurological: CN II-XII grossly intact, no focal motor or sensory deficits noted Skin: Intact with no visualized rashes Psych: Normal affect and mood ED course: 84-year-old female was found down. Patient is reportedly amnestic. There is concern that patient is EtOH intoxicated. Vital signs upon arrival are within acceptable limits. Patient is a poor historian. Laboratory evaluation obtained. CBC is unremarkable. Coag panel is unremarkable. Metabolic panel is negative. Serum alcohol is 231. Pelvis x-ray and chest x-ray are unremarkable. Computed tomography scan of the face head and C-spine was obtained. There is findings of inferior orbital wall fracture that is comminuted and acute with prolapse of the inferior rectus muscle. Patient daughter arrived at bedside. Patient's daughter reports that patient does not have a safe disposition. She lives at home by herself all the daughter lives in [place]. Patient stutters unwilling to allow mother to go to her house because she has 3 dogs. Patient be admitted to medicine pending clinical sobriety. Since patient be admitted we will have ENT consulted. - Related Data Home Medications Medication Instructions Recorded Confirmed Montelukast Sodium [Singulair] 10 mg PO HS 01/20/20 01/20/20 amLODIPine [Norvasc] 5 mg PO DAILY 01/20/20 01/20/20 Allergies Allergy/AdvReac Type Severity Reaction Status Date / Time No Known Allergies Allergy Verified 01/20/20 21:08 Review of Systems ROS Statement: Those systems with pertinent positive or pertinent negative responses have been documented in the HPI. ROS Other: All systems not noted in ROS Statement are negative. Past Medical History Past Medical History: Cancer, COPD, Hyperlipidemia, Hypertension, Osteoarthritis (OA), Respiratory Disorder, Syncope Additional Past Medical History / Comment(s): Lung Cancer diagnosis in September 2016, currently receiving chemotherapy. History of Any Multi-Drug Resistant Organisms: None Reported Past Surgical History: Appendectomy, Hysterectomy Additional Past Surgical History / Comment(s): colostomy reversal 2008, cataracts Past Anesthesia/Blood Transfusion Reactions: No Reported Reaction Past Psychological History: Depression Smoking Status: Former smoker Past Alcohol Use History: None Reported Past Drug Use History: None Reported - Past Family History Mother Family Medical History: Cancer Additional Family Medical History / Comment(s): Mother had lung CA diagnosed at 90 years old. Brother(s) Family Medical History: Diabetes Mellitus Daughter(s) Family Medical History: Cancer Additional Family Medical History / Comment(s): Daughter had breast CA in 2006 General Exam Limitations: no limitations Course Vital Signs 01/20/20 17:51 Temperature 98.0 F Pulse Rate 67 Respiratory 18 Rate Blood Pressure 148/85 O2 Sat by Pulse 97 Oximetry Medical Decision Making - Lab Data Result diagrams: 01/20/20 19:45 01/20/20 19:45 Lab Results 01/20/20 01/20/20 01/20/20 Range/Units 19:45 19:45 19:45 WBC 10.6 (3.8-10.6) k/uL RBC 4.91 (3.80-5.40) m/uL Hgb 16.0 (11.4-16.0) gm/dL Hct 48.1 H (34.0-46.0) % MCV 98.0 (80.0-100.0) fL MCH 32.6 (25.0-35.0) pg MCHC 33.2 (31.0-37.0) g/dL RDW 13.8 (11.5-15.5) % Plt Count 191 (150-450) k/uL Neutrophils % 77 % Lymphocytes % 17 % Monocytes % 3 % Eosinophils % 1 % Basophils % 1 % Neutrophils # 8.1 H (1.3-7.7) k/uL Lymphocytes # 1.8 (1.0-4.8) k/uL Monocytes # 0.3 (0-1.0) k/uL Eosinophils # 0.1 (0-0.7) k/uL Basophils # 0.1 (0-0.2) k/uL PT 10.1 (9.0-12.0) sec INR 1.0 (<1.2) APTT 19.0 L (22.0-30.0) sec Sodium 138 (137-145) mmol/L Potassium 4.2 (3.5-5.1) mmol/L Chloride 101 (98-107) mmol/L Carbon Dioxide 22 (22-30) mmol/L Anion Gap 15 mmol/L BUN 14 (7-17) mg/dL Creatinine 0.53 (0.52-1.04) mg/dL Est GFR (CKD-EPI)AfAm >90 (>60 ml/min/1.73 sqM) Est GFR (CKD-EPI)NonAf 89 (>60 ml/min/1.73 sqM) Glucose 104 H (74-99) mg/dL Calcium 9.3 (8.4-10.2) mg/dL Serum Alcohol 231 H* mg/dL Disposition Clinical Impression: Fall, Alcohol intoxication, Facial fracture Disposition: [facility] Condition: Fair Referrals: Saul Washington MD [Primary Care Provider] - 1-2 days Decision Time: 21:21
--- NOTE | 2020-01-20 19:27 | XR ---
EXAMINATION TYPE: XR chest 2V DATE OF EXAM: 01/20/2020 COMPARISON: 12/07/2016 HISTORY: Generalized pain after fall TECHNIQUE: Frontal and lateral views of the chest are obtained. FINDINGS: There is multifocal pleural thickening is seen and partial obscuration the lung bases due to copious overlying soft tissues. The patient's known right basilar lung cancer is poorly defined on x-ray. Underlying emphysematous changes of the lungs. Cardiomediastinal silhouette is again enlarged .. Flattening of the diaphragms on the lateral view represents underlying COPD. The cardiac silhouet te size is within normal limits. Moderate multilevel degenerative change of the spine and diffuse oss eous demineralization limiting evaluation of the osseous structures. IMPRESSION: Diffuse osseous demineralization limiting evaluation of the osseous structures. Right mi dlung known neoplasm is better appreciated on CT. Chronic changes of the lung bases and persistently enlarged cardiac mediastinal silhouette.
--- NOTE | 2020-01-20 19:30 | XR ---
EXAMINATION TYPE: XR pelvis AP view DATE OF EXAM: 01/20/2020 CLINICAL HISTORY: Generalized pain after fall TECHNIQUE: A single AP view of the pelvis is obtained. COMPARISON: None. FINDINGS: There is no acute fracture/dislocation evident in the pelvis. The hip and sacroiliac join ts appear aligned however severe left and moderate right degenerative changes of the hip are seen. Th ere is a small fractured osteophyte of the left superior acetabulum that appears present posteriorly on the prior PET/CT on image 210. The overlying soft tissue appears unremarkable. Moderate degenerat wai change of the lumbosacral junction is also seen. IMPRESSION: 1. No acute fracture or dislocation in the pelvis. 2. Old left acetabular osteophyte fracture. Severe arthropathy of the left hip and moderate on the ri ght.
--- NOTE | 2020-01-20 19:57 | CT ---
EXAMINATION TYPE: CT facial bones wo con, CT brain cspine wo con DATE OF EXAM: 01/20/2020 HISTORY: Fall today. Head and neck pain. Facial contusion. CT DLP: 2038.6 mGycm. Automated Exposure Control for Dose Reduction was Utilized. COMPARISON: CT brain dated 12/07/2016. TECHNIQUE: CT scan of the facial bones, head and cervical spine are performed without contrast. FINDINGS: There is no acute intracranial hemorrhage, mass effect, or midline shift identified. The ventricles and sulci are symmetrically prominent compatible with age-related volume loss. Patchy are as of hypoattenuation are seen within the periventricular and subcortical white matter, most commonly on the basis of chronic microangiopathy period extra-axial calcified 1. Cm left parietal region this is very similar to the prior of 12/07/2016 and likely represents a benign meningioma. Partially empty sella turcica is incidentally noted. Soft tissue swelling is seen over the left mandible compatible with contusion in the setting of traum a with small more well-formed hematoma overlying the left zygomatic arch measuring 9 mm in greatest t hickness. Contusion extends into the left infraorbital and periorbital region with preseptal edema. G lobes are symmetric and maintain a rounded morphology. Lenses are either atrophic or urgently absent. Incidental note is made of medial course of the heavily calcified carotid arteries. The frontal and e thmoid sinuses are well aerated with small bilateral aletha bullosa. Scant mucosal thickening of the sphenoid sinus. Right maxillary sinus is well aerated. Mild to moderate mucosal thickening of the lef t maxillary sinus. There is a comminuted and displaced left inferior orbital wall fracture extending into the medial wal l with displacement of the inferior wall 8.5 mm. There is herniation of intraorbital fat inferomedial ly marked on soft tissue algorithm coronal series 24. The inferior rectus muscle has partial herniati on and a small amount of air is seen inferior to the inferior rectus muscle from the known fracture. There is a trace amount of intraconal fat stranding seen anterolaterally on coronal image 26. The left orbital superior wall and lateral wall appear intact. The zygomatic arch is intact. Mild deg enerative change of the temporomandibular joints. Pterygoid plates are intact. Maxillary spine is int act. There is a mildly displaced left nasal bone fracture marked on axial bone algorithm image 63. Th ere is minimal leftward nasal septal deviation and a small leftward nasal septal spur. There is grade 1 anterolisthesis of C2 on C3. Skull base maintains normal alignment. Narrowing of the atlantodental interval is degenerative. There is reversal of the usual cervical lordosis. Very minim al grade 1 anterolisthesis is also seen of C3 on C4. Multilevel posterior disc osteophyte complexes. No significant compression deformity of the cervical spine. Facets maintain normal alignment and are hypertrophic. No abnormal prevertebral soft tissue swelling. Moderate to severe multilevel degenerati ve disc disease of the spine with multilevel neural foraminal narrowing is variable degree. The lung apices demonstrate pleural parenchymal scarring bilaterally. Spinal canal is limited on CT. Multilevel at least mild spinal canal stenosis is suspected secondary to degenerative disc disease an d could be confirmed with MRI. IMPRESSION: 1. Inferior medial left orbital wall comminuted acute displaced fracture with herniation of intraorbi joshua fat into the maxillary sinus and partial herniation/prolapse of the inferior rectus muscle. Minim al post septal fat stranding is seen inferolaterally. No evidence of globe rupture. Findings discusse d with ordering provider Dr. Prakash Hopson by Dr. Barboza at 1953 on 01/20/20. 2. There is no acute fracture of the cervical spine however there is multilevel malalignment likely o n a degenerative basis and moderate to severe multilevel degenerative disc disease with suspected mul tilevel spinal canal stenosis with variable degree neural foraminal narrowing related 3. No acute intracranial hemorrhage, mass effect, or midline shift is seen. 4. Similar size of a probable benign calcified meningioma in comparison to the exam of 12/07/2016.
[2020-01-20 19:59] LABS: Basophils # (A) 0.1 k/uL (0-0.2); Basophils % (A) 1 %; Eosinophils # (A) 0.1 k/uL (0-0.7); Eosinophils % (A) 1 %; HCT 48.1 % (34.0-46.0); Lymphocytes # (A) 1.8 k/uL (1.0-4.8); Lymphocytes % (A) 17 %; MCH 32.6 pg (25.0-35.0); MCHC 33.2 g/dL (31.0-37.0); Mean Platelet Volume 8.8; Monocytes # (A) 0.3 k/uL (0-1.0); Monocytes % (A) 3 %; Neutrophils # (A) 8.1 k/uL (1.3-7.7); Neutrophils % (A) 77 %; Platelet Count 191 k/uL (150-450); RBC 4.91 m/uL (3.80-5.40); RDW 13.8 % (11.5-15.5); WBC 10.6 k/uL (3.8-10.6)
[2020-01-20 20:07] LABS: African American GFR (CKD) >90 (>60 ml/min/1.73 sqM); Anion Gap 15 mmol/L; Blood Urea Nitrogen 14 mg/dL (7-17); Calcium 9.3 mg/dL (8.4-10.2); Carbon Dioxide 22 mmol/L (22-30); Chloride 101 mmol/L (98-107); Glucose 104 mg/dL (74-99); Non-African American GFR(CKD) 89 (>60 ml/min/1.73 sqM); Sodium 138 mmol/L (137-145)
[2020-01-20 20:11] LABS: Alcohol 231 mg/dL; Potassium 4.2 mmol/L (3.5-5.1)
[2020-01-20 20:13] LABS: Prothrombin Time 10.1 sec (9.0-12.0)
[2020-01-20] MEDS ORDERED: cefTRIAXone IN SWFI 1,000 MG/10 ML SYRINGE IVP STA (20:52)
[2020-01-20] MEDS ORDERED: NALOXONE 0.4 MG/ML 1 ML VIAL IV PRN (21:18)
[2020-01-20] MEDS ORDERED: SODIUM CHLORIDE 0.9% 1,000 ML IV SCH (21:30)
[2020-01-20] MEDS: CEPHALEXIN 500 MG CAP PO SCH (22:00)
[2020-01-21 06:00] VITALS: PULSE 85; RESP 20; TEMP 98.9
[2020-01-21] MEDS: CEPHALEXIN 500 MG CAP PO SCH ×2 (08:19→12:49)
[2020-01-21] MEDS ORDERED: amLODIPine 5 MG TAB PO SCH (09:00)
[2020-01-21] MEDS ORDERED: ACETAMINOPHEN TAB 325 MG TAB PO PRN (10:56)
[2020-01-21] MEDS ORDERED: MELOXICAM 7.5 MG TAB PO SCH (11:15)
[2020-01-21 11:18] VITALS: BP 141/81
--- NOTE | 2020-01-21 11:49 | XR ---
EXAMINATION TYPE: XR shoulder limited LT DATE OF EXAM: 01/21/2020 CLINICAL HISTORY: Pain after fall injury. TECHNIQUE: 2 views of the left shoulder are obtained. COMPARISON: None. FINDINGS: [place] osseous structures are demineralized. There is no acute fracture/dislocation eviden t in the left shoulder. The acromioclavicular and glenohumeral joint spaces appear within normal herrera its. The visualized ribs are intact and unremarkable. IMPRESSION: There is no acute fracture or dislocation in the right shoulder.
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
[2020-01-21] MEDS ORDERED: MONTELUKAST 10 MG TAB PO SCH (21:00)
== END 2020-01-21 14:33 | disposition home or self-care (01) ==
LOC: EC 17:49 → 6NMEDSUR 21:19
PROVIDERS: ADMIT Family Medicine; ATTEND Family Medicine
DX: F10.129 Alcohol abuse with intoxication, unspecified (principal); S02.32XA Fracture of orbital floor, left side, initial encounter for closed fracture; S02.832A Fracture of medial orbital wall, left side, initial encounter for closed fracture; J44.9 Chronic obstructive pulmonary disease, unspecified; E78.5 Hyperlipidemia, unspecified; M25.512 Pain in left shoulder; R55 Syncope and collapse; R41.3 Other amnesia; I10 Essential (primary) hypertension; M16.0 Bilateral primary osteoarthritis of hip; E66.9 Obesity, unspecified; Z68.28 Body mass index [BMI] 28.0-28.9, adult; F33.9 Major depressive disorder, recurrent, unspecified; M50.30 Other cervical disc degeneration, unspecified cervical region; Z79.899 Other long term (current) drug therapy; Y90.7 Blood alcohol level of 200-239 mg/100 ml; Z90.49 Acquired absence of other specified parts of digestive tract; W19.XXXA Unspecified fall, initial encounter; Z90.710 Acquired absence of both cervix and uterus; Z87.891 Personal history of nicotine dependence; Z85.118 Personal history of other malignant neoplasm of bronchus and lung; Z98.49 Cataract extraction status, unspecified eye; Z87.81 Personal history of (healed) traumatic fracture; Z82.49 Family history of ischemic heart disease and other diseases of the circulatory system; Z80.1 Family history of malignant neoplasm of trachea, bronchus and lung; Z83.3 Family history of diabetes mellitus; Z80.3 Family history of malignant neoplasm of breast
CPT/HCPCS: 96374; 99285; 36415; 80048; 82550; 85025; 85610; 85730; 72170; 73020; 71046; 72125; 70486; 70450; G0378 ×2; G0480; J0696; 80320